=== PATIENT | male | born 1950 | race Caucasian/White ===

== ENCOUNTER 2018-07-05 18:30 | Inpatient (IN) ==
[2018-07-05] MEDS ORDERED: D5% in Water 1,000 ML IVC PRN (21:40)
[2018-07-05] MEDS ORDERED: Dextrose Gel 15 GM/37.5 ML TUBE PO PRN ×2 (21:40)
[2018-07-05] MEDS ORDERED: *HR* Dextrose 50 % in Water (Syg) 50 ML SYRINGE IVP PRN (21:40)
[2018-07-05] MEDS ORDERED: Acetaminophen 325 MG TABLET PO PRN (21:40)
[2018-07-05] MEDS ORDERED: Naloxone 0.4 MG/ML INJ IVP PRN (21:40)
[2018-07-05] MEDS ORDERED: Albuterol 2.5 MG/3 ML NEBULIZER IH PRN (21:47)
[2018-07-05] MEDS ORDERED: *HR* Heparin 5,000 UNIT/ML VIAL SQ SCH (22:00)
[2018-07-05] MEDS ORDERED: Vancomycin (wt based) 1,000 MG VIAL IVPB SCH (22:00)
[2018-07-05] MEDS: Ipratropium/Albuterol Neb 3 ML IH SCH (22:18)
--- NOTE | 2018-07-05 22:31 | Internal Med History&Physical ---
Date of Encounter: 07/05/18 Time of Encounter: 21:05 Internal Medicine - H&P: HPI Chief complaint: SOB; fevers; chills Admitted From: Hospital to Hospital Transfer Plans for Post Hospital Care: Home History of present illness: Mr. Galaviz is a 68 year old male who presents in transfer from [facility] ER for concerns of sepsis, chronic CHF, and COPD. He presented there with complaints of shortness of breath, chills, fevers, and low blood pressure. He was fluid resuscitated gingerly. He was found to have evidence of lactic acidosis, which was felt to be either due to CHF, metformin, and/or respiratory distress. After hemodynamic stabilization, he wa transferred to [facility]. Upon arrival to our floor, I saw him immediately. Blood pressure is hovering around 90 systolic, and he is currently asymptomatic with that blood pressure. He does have a significant appearing cellulitis of his right leg which I suspect may be the infectious source for sepsis. He confirms having had chills and subjective fevers at home. He did develop shortness of breath but denies any chest pain. Upon further history, patient confirms a history of chronic CHF and he does have an AICD/defibrillator in his left chest. He does not know his ejection fraction. He follows primarily with the [facility] and [facility] in [place]. We have no old records in our system regarding his cardiac workup. He denies any recent weight gain, increased abdominal girth, or increasing edema of his legs. He does have chronic edema of lower extremities and of his abdomen. However, that has not changed in recent weeks. He denies any fluctuation in his weight either. Given his lactic acidosis, hypotension, and evidence of cellulitis of his right lower extremity, I am concerned about sepsis, and we will treat him as such. Lactic acidosis may be secondary to metformin use as well. Nonetheless, I will gingerly fluid resuscitate him and trend his lactate levels while treating presumed sepsis. I discussed CODE STATUS with patient, and he confirms DNR arrest CODE STATUS. Past Med Surg Social Fam HX - Past Medical History Attestation: Yes The following information was validated with the patient. Source: patient, other ([facility]) Medical history: CHF, diabetes, hyperlipidemia, hypertension, myocardial infarction Additional medical history: AICD Psychiatric history: no psych history - Past Surgical History Surgical History: pacemaker/AICD, other - Social History Smoking Status: Former smoker Smokeless Tobacco Status: No Alcohol use: none Drug use: none Current living situation: Home, With Family Activity Level: Independent ambulation, Mostly sedentary Recent Out of Country Travel Within the Last 8 Weeks: No - Family History Mother Living Status: Cause of : ovarian CA Father Living Status: Cause of : COPD Internal Medicine - H&P: Meds Aspirin [Lo-Dose Aspirin EC] 81 mg PO DAILY 07/05/18 [History] Atorvastatin Calcium [Lipitor] 80 mg PO HS 07/05/18 [History] Furosemide [Lasix] 80 mg PO BID 07/05/18 [History] Gabapentin [Neurontin] 600 mg PO TID 07/05/18 [History] Isosorbide DInitrate [Isosorbide Dinitrate] 30 mg PO DAILY 07/05/18 [History] Lisinopril [Zestril] 10 mg PO DAILY 07/05/18 [History] Metformin HCl [Fortamet] 1,000 mg PO BID 07/05/18 [History] Metoprolol [Lopressor] 25 mg PO BID 07/05/18 [History] Spironolactone [Aldactone] 25 mg PO DAILY 07/05/18 [History] 3 Allergy/AdvReac Type Severity Reaction Status Date / Time No Known Allergies Allergy Verified 07/05/18 13:53 - Constitutional Constitutional: chills, excessive sweating, fatigue, fever(s), no night sweats, no weight gain, no weight loss - EENT Eyes: no blurry vision, no change in vision Ears: no ear pain, no tinnitus Nose, mouth and throat: no nasal congestion, no sore throat - Cardiovascular Cardiovascular ROS IM: dyspnea, dyspnea on exertion, edema (chronic), no chest pain, no orthopnea, no syncope - Respiratory Respiratory: no cough, no hemoptysis, no chest congestion, no excessive phlegm production - Gastrointestinal Gastrointestinal: no abdominal pain, no diarrhea, no hematemesis, no hematochezia, no melena, no vomiting - Genitourinary Genitourinary ROS male: no dysuria, no flank pain, no hematuria - Musculoskeletal Musculoskeletal ROS IM: muscle cramps, no back pain - Integumentary Integumentary IM: erythema (RLE), no jaundice - Neurological Neurological ROS: no dizziness, no focal weakness, no frequent falls, no headache(s) - Psychiatric Psychiatric: no anxiety, no depression - Endocrine Endocrine IM: no polydipsia, no polyuria - Allergic/Immunologic Allergic/Immunologic: no GI upset with certain foods - Constitutional Vitals: Temp Pulse Resp BP Pulse Ox 97.8 F 88 20 93/57 94 07/05/18 20:54 07/05/18 20:54 07/05/18 20:54 07/05/18 20:54 07/05/18 20:54 General appearance: Present: cooperative, mild distress, A&O X 3, pleasant, answers questions appropriately Exam: see below - Head Head exam: Present: atraumatic, normal inspection - Eye Eye exam: Present: EOMI, PERRL. Absent: scleral icterus Pupils: Present: normal accommodation - ENT ENT exam: Present: mucous membranes dry, normal exam, normal oropharynx - Neck Neck exam general surgery: Present: full ROM, supple. Absent: tenderness, nuchal rigidity, thyromegaly - Respiratory Respiratory exam: Present: CTAB, prolonged expiratory phase. Absent: rales, rhonchi, wheezes Additional comments: distant breath sounds - Cardiovascular Cardiovascular exam: Present: distant heart sounds, RRR, +S1, +S2, tachycardia ( HR low 100s) - GI/Abdominal GI/Abdominal exam: Present: distended, hypoactive bowel sounds, soft. Absent: mass, tenderness Additional comments: obese; no appreciable edema/anasarca to abdomen - Extremities Exam Extremities exam: Present: full ROM, normal capillary refill, pedal edema (3-4+) , warm, radial pulses palpable and symmetrical. Absent: calf tenderness, joint swelling Additional comments: chronic venous stasis changes to both legs with warm, red, tender cellulitis of right pretibial area - Back Exam Back exam: Absent: CVA tenderness (L), CVA tenderness (R) - Neurological Exam Neurological exam: Present: alert, CN II-XII intact, oriented X3, no focal deficits - Psychiatric Psychiatric exam: Present: normal affect, normal mood - Skin Skin exam: Present: dry, erythema (RLE as above), warm Internal Med - H&P Results - Labs Labs: I reviewed the labs from [place] and include the following: WBC 10.4 Hemoglobin 13.3 Hematocrit 43.5 Platelets 199 PT 13.9 INR 1.2 D-dimer 3134 Sodium 135 Potassium 4.0 Chloride 94 Carbon dioxide 28 BUN 15 Creatinine 1.06 Lactate: 5.0 --> 4.2 CTA chest: Report reviewed -- no PE; mild COPD - Assessment and plan (1) Sepsis Current Visit: Yes Status: Acute Assessment and plan: 1. Will fluid resuscitate gingerly and trend lactate levels. 2. Will order blood cultures. 3. Will treat with IV Vancomycin and Zosyn for RLE cellulitis source of infection. 4. If necessary, will move to ICU for pressor support and further ICU care. Qualifiers: Sepsis type: sepsis due to unspecified organism Qualified Code(s): A41.9 - Sepsis, unspecified organism (2) Cellulitis Current Visit: Yes Status: Acute Assessment and plan: 1. As above. 2. IV antibiotics, blood cultures, clinical reassessment. Qualifiers: Site of cellulitis of extremity: lower extremity Laterality: right Qualified Code(s): L03.115 - Cellulitis of right lower limb (3) Chronic systolic (congestive) heart failure Current Visit: Yes Status: Suspected Assessment and plan: 1. Based upon history, I suspect he has chronic systolic CHF. 2. Will order ECHO and EKG. 3. No acute process at this time; however, with IVF resuscitation and hydration , he may need further treatment for acute CHF. 4. Monitor fluid balance closely. (4) Type 2 diabetes mellitus Current Visit: Yes Status: Chronic Assessment and plan: 1. Hold Metformin. 2. Will place on SSI. 3. Monitor glucose closely and adjust as necessary. Qualifiers: Diabetes mellitus assisted insulin use: without dump attendant use Diabetes mellitus complication status: without complication Qualified Code(s): E11.9 - Type 2 diabetes mellitus without complications (5) COPD (chronic obstructive pulmonary disease) Current Visit: Yes Status: Chronic Assessment and plan: 1. NO acute process. 2. Will place on DUONEB abd Albuterol aerosols PRN. Qualifiers: COPD type: emphysema Emphysema type: panlobular Qualified Code(s): J43.1 - Panlobular emphysema (6) DVT prophylaxis Current Visit: Yes Status: Acute Assessment and plan: 1. Given D-DImer > 3000, will place on heparin drip until BLE Dopplers can be performed. 2. D-Dimer elevation likely due to sepsis; however, there is suspicion for DVT.
[2018-07-05] MEDS: 0.9 % Sodium Chloride 1,000 ML IVC SCH (22:32)
[2018-07-05] MEDS ORDERED: *HR* Heparin 5,000 UNIT/ML VIAL IVP PRN ×2 (22:40)
[2018-07-05 23:22] LABS: Hematocrit 42.2 % (37.5-50.1); Hemoglobin 13.2 g/dL (12.9-16.9); Heparin anti-factor XA UFH 0.01 IU/mL (0.30-0.70); Mean Corpuscular HGB Conc 31.3 g/dL (31.6-35.5); Mean Corpuscular Hemoglobin 28.8 pg (28.0-33.3); Mean Corpuscular Volume 91.9 fL (83.0-100.0); Platelet Count 162 K/mcL (140-400); Red Blood Count 4.59 M/mcL (4.19-5.50); Red Cell Distribution Width 15.9 % (11.5-14.5)
[2018-07-05 23:23] LABS: INR 1.2; Prothrombin Time 13.9 Seconds (9.4-12.1)
[2018-07-05] MEDS: Piperacillin/Tazobactam 3.375 GM in 0.9 % Sodium Chloride Mini Bag 100 ML IVPB SCH (23:51)
[2018-07-05] MEDS: Heparin 25,000 UNIT/500 ML D5W 25,000 UNIT/500 ML BAG IVC SCH (23:52)
[2018-07-06 02:02] LABS: Basophils % 0.2 %; Hematocrit 38.8 % (37.5-50.1); Hemoglobin 12.1 g/dL (12.9-16.9); Immature Granulocytes % 3.4 % (0-4); Lymphocytes # 0.4 K/mcL (0.6-4.6); Lymphocytes % 1.8 %; Mean Corpuscular HGB Conc 31.2 g/dL (31.6-35.5); Mean Corpuscular Hemoglobin 28.4 pg (28.0-33.3); Mean Corpuscular Volume 91.1 fL (83.0-100.0); Mean Platelet Volume 10.9 fL (9.4-12.4); Monocytes # 0.9 K/mcL (0.0-1.3); Monocytes % 3.8 %; Platelet Count 152 K/mcL (140-400); Red Blood Count 4.26 M/mcL (4.19-5.50); Red Cell Distribution Width 16.2 % (11.5-14.5); Segmented Neutrophils % 90.8 %
[2018-07-06 02:05] LABS: Basophils # 0.1 K/mcL (0.0-0.2); Neutrophils # 20.4 K/mcL (1.6-8.9)
[2018-07-06 02:22] LABS: Albumin 3.6 g/dL (3.5-5.7); Albumin/Globulin Ratio 1.1 (1.1-2.2); Calcium 8.4 mg/dL (8.6-10.3); Globulin 3.3 g/dL (2.4-3.5); Magnesium 1.3 mg/dL (1.6-2.6); Potassium 3.9 mEq/L (3.5-5.1); Total Protein 6.9 g/dL (6.4-8.9)
[2018-07-06 02:32] LABS: Platelet Estimate Normal (Normal); Toxic Granulation Present (Not Present)
[2018-07-06] MEDS: Ipratropium/Albuterol Neb 3 ML IH SCH ×4 (04:08→22:27)
[2018-07-06] MEDS: Piperacillin/Tazobactam 3.375 GM in 0.9 % Sodium Chloride Mini Bag 100 ML IVPB SCH ×3 (07:22→23:11)
[2018-07-06] MEDS: Aspirin Enteric Coated 81 MG Tablet PO SCH (07:23)
[2018-07-06] MEDS: Gabapentin 300 MG CAPSULE PO SCH ×3 (07:23→20:14)
[2018-07-06] MEDS: Insulin LISPRO 300 UNITS/3 ML VIAL SQ SCH ×3 (07:46→17:14)
[2018-07-06] MEDS: 0.9 % Sodium Chloride 1,000 ML IVC SCH ×2 (09:28→19:54)
[2018-07-06] MEDS ORDERED: Perflutren Lipid Microsphere 1.3 ML in 0.9 % Sodium Chloride 8.7 ML IVP ONE (10:34)
[2018-07-06] MEDS: Heparin 25,000 UNIT/500 ML D5W 25,000 UNIT/500 ML BAG IVC SCH (11:37)
--- NOTE | 2018-07-06 12:09 | Internal Med Progress Note ---
Hospitalist Progress Note - Encounter Date of Encounter: 07/06/18 Time of Encounter: 10:40 - Subjective Interval History: H&P reviewed. 68-year-old male with history of COPD, diabetes, presumably HFrEF with ICD insertion, was admitted from the outside hospital due to chills and hypotension. He was found to be septic, source determined to be the right lower leg cellulitis. Had leukocytosis of 22.5 and lactic acid of 5. BP and lactic acidosis improved with IV antibiotics and IVF overnight. Blood culture is growing gram-positive cocci that appears to be streptococcus - Exam Vitals: Temp Pulse Resp BP Pulse Ox 98.1 F 115 20 103/71 93 07/06/18 07:16 07/06/18 09:43 07/06/18 10:02 07/06/18 07:16 07/06/18 10:02 Exam: General: Alert and oriented, not in acute distress. Cardiovascular:Normal S1 & S2, No JVD. Pulse regular. Lungs: clear to auscultation, no wheezes/rales Abdomen:Soft, non-tender, no rigidity. Extremities: both legs with changes consistent with chronic venous stasis but R LE is warm to touch, tender on palpation around pre-tibial region Neurological:Normal cognition and motor skills. Non-focal - Assessment and Plan (1) Severe sepsis Current Visit: Yes Status: Acute Assessment and Plan: presented with chills, hypotension, tachycardia, and leukocytosis > 20 lactic acid 5, blood culture growing streptococcus BP and lactic acid improved with IVF but now appears to have KARISHMA with Cr at 1.68 , likely ATN from sepsis continue IV vanc/zosyn IVF for KARISHMA monitor BP closely (2) Cellulitis Current Visit: Yes Status: Acute Assessment and Plan: Abx as above. (3) Chronic systolic (congestive) heart failure Current Visit: Yes Status: Suspected Assessment and Plan: Based upon history, he presumably has chronic systolic CHF with ICD follow up on Echo since his BP and lactic acid normalized, will decrease the rate of IVF for KARISHMA (4) Type 2 diabetes mellitus Current Visit: Yes Status: Chronic Assessment and Plan: Hold Metformin, low dose SSI. Depending on the requirement, will switch to basal+bolus regime (5) COPD (chronic obstructive pulmonary disease) Current Visit: Yes Status: Chronic Assessment and Plan: not in exacerbation, on DUONEB abd Albuterol aerosols PRN. (6) Hypomagnesemia Current Visit: Yes Status: Acute Assessment and Plan: replete (7) DVT prophylaxis Current Visit: Yes Status: Acute Assessment and Plan: Given D-DImer > 3000 and swelling + tenderness more significant on RLE>LLE, will place on heparin drip until BLE Dopplers can be performed D-Dimer elevation likely due to sepsis; however, there is suspicion for DVT. - Time Spent with Patient Total time spent is greater than 50% in coordination of care (as documented) at patient's floor/unit and/or counseling patient: Plan of Care Discussed with: nurse Internal Medicine: Result - Labs CBC & Chem 7: 07/06/18 01:42 07/06/18 01:42 Labs: Short CBC 07/05/18 07/06/18 Range/Units 22:40 01:42 WBC 20.1 H D 22.5 H (4.3-11.1) K/mcL Hgb 13.2 12.1 L (12.9-16.9) g/dL Hct 42.2 38.8 (37.5-50.1) % Plt Count 162 152 (140-400) K/mcL Neutrophils # 20.4 H (1.6-8.9) K/mcL BMP 07/06/18 01:42 Sodium 134 L Potassium 3.9 Chloride 100 Carbon Dioxide 24 BUN 27 H Creatinine 1.68 H Glucose 200 H Calcium 8.4 L Liver Function 07/06/18 Range/Units 01:42 Total Bilirubin 1.0 (0.3-1.0) mg/dL AST 32 (13-39) Units/L ALT 17 (7-52) Units/L Alkaline Phosphatase 41 (34-104) Units/L Albumin 3.6 (3.5-5.7) g/dL - ABG Interpretation ABG results: PT/INR, D-dimer PT 13.9 Seconds (9.4-12.1) H 07/05/18 22:40 Consult Discharge Plan - Plan [facility]errals: [facility] Care Provider[facility] - Kendal Mckenna MD [Family Provider] - (2) Cellulitis Qualifiers: Site of cellulitis of extremity: lower extremity Laterality: right Qualified Code(s): L03.115 - Cellulitis of right lower limb (4) Type 2 diabetes mellitus Qualifiers: Diabetes mellitus half-way insulin use: without watermelon inspector use Diabetes mellitus complication status: without complication Qualified Code(s): E11.9 - Type 2 diabetes mellitus without complications (5) COPD (chronic obstructive pulmonary disease) Qualifiers: COPD type: emphysema Emphysema type: panlobular Qualified Code(s): J43.1 - Panlobular emphysema
[2018-07-06] MEDS: *HR* Heparin 5,000 UNIT/ML VIAL SQ SCH ×2 (14:36→20:15)
[2018-07-07] MEDS: 0.9 % Sodium Chloride 1,000 ML IVC SCH (03:06)
[2018-07-07] MEDS: Ipratropium/Albuterol Neb 3 ML IH SCH ×4 (04:24→21:58)
[2018-07-07] MEDS: *HR* Heparin 5,000 UNIT/ML VIAL SQ SCH ×2 (05:12→14:30)
[2018-07-07 07:11] LABS: Hematocrit 38.6 % (37.5-50.1); Hemoglobin 11.6 g/dL (12.9-16.9); Mean Corpuscular HGB Conc 30.1 g/dL (31.6-35.5); Mean Corpuscular Hemoglobin 28.5 pg (28.0-33.3); Mean Corpuscular Volume 94.8 fL (83.0-100.0); Mean Platelet Volume 11.4 fL (9.4-12.4); Platelet Count 115 K/mcL (140-400); Red Blood Count 4.07 M/mcL (4.19-5.50); Red Cell Distribution Width 15.9 % (11.5-14.5)
[2018-07-07 07:41] LABS: BUN/Creatinine Ratio 29 (6-26); Blood Urea Nitrogen 38 mg/dL (8-23); Carbon Dioxide 27 mEq/L (23-29); Chloride 99 mEq/L (98-107); Glucose 141 mg/dL (70-105); Osmolality,Calculated 289 (280-300); Potassium 3.9 mEq/L (3.5-5.1); Sodium 134 mEq/L (136-145); eGFR For Non-African Americans 56 (> 60)
[2018-07-07] MEDS: Insulin LISPRO 300 UNITS/3 ML VIAL SQ SCH ×3 (07:41→17:08)
[2018-07-07 08:36] LABS: Lymphocytes # 0.3 K/mcL (0.6-4.6); Monocytes # 0.3 K/mcL (0.0-1.3); Neutrophils # 15.9 K/mcL (1.6-8.9)
[2018-07-07 08:37] LABS: Anisocytosis 1+ (Not Present); Platelet Estimate Slight Decrease (Normal)
[2018-07-07] MEDS: Gabapentin 300 MG CAPSULE PO SCH ×3 (08:39→20:34)
[2018-07-07] MEDS: Aspirin Enteric Coated 81 MG Tablet PO SCH (08:39)
[2018-07-07] MEDS: Metoprolol XL (24 HR) Succ 25 MG TAB.ER.24H PO SCH (08:39)
[2018-07-07] MEDS: Piperacillin/Tazobactam 3.375 GM in 0.9 % Sodium Chloride Mini Bag 100 ML IVPB SCH ×3 (08:39→23:12)
[2018-07-07 08:41] LABS: Toxic Granulation Present (Not Present)
--- NOTE | 2018-07-07 10:57 | Internal Med Progress Note ---
Hospitalist Progress Note - Encounter Date of Encounter: 07/07/18 Time of Encounter: 09:15 - Subjective Interval History: States that his RLE feels better, less tender and swollen. No fever overnight. Doppler -ve for DVT. Denies SOB, orthopnea. - Exam Vitals: Temp Pulse Resp BP Pulse Ox 98.2 F 124 18 104/74 91 07/07/18 07:15 07/07/18 07:15 07/07/18 09:30 07/07/18 07:15 07/07/18 09:30 Exam: General: Alert and oriented, not in acute distress. Cardiovascular:Normal S1 & S2, No JVD. Pulse regular. Lungs: clear to auscultation, no wheezes/rales Abdomen:Soft, non-tender, no rigidity. Extremities: both legs with changes consistent with chronic venous stasis, decreasing erythema and swelling over R LE Neurological:Normal cognition and motor skills. Non-focal - Assessment and Plan (1) Severe sepsis Current Visit: Yes Status: Acute Assessment and Plan: presented with chills, hypotension, tachycardia, and leukocytosis > 20 lactic acid 5, blood culture growing streptococcus species BP and lactic acid improved with IVF but now appears to have KARISHMA with Cr at 1.68 -> likely ATN from sepsis, improved with IVF yesterday WBC improving but now with bands of 30%, continue IV vanc/zosyn D2 will d/c IVF in view of his HFrEF, encourage oral intake monitor BP closely (2) Cellulitis Current Visit: Yes Status: Acute Assessment and Plan: Abx as above. (3) KARISHMA (acute kidney injury) Current Visit: Yes Status: Acute Assessment and Plan: ?ATN from sepsis vs. ADRIEL, improved after low rate of IVF overnight will monitor off IVF today given his history of HFrEF (4) Heart failure Current Visit: Yes Status: Chronic Assessment and Plan: Based upon history, he presumably has chronic systolic CHF with ICD Echo done last night verified that he has EF of 30%, globally reduced LV function with mild dilatation, and diastolic dysfunction with possibly elevated filling pressures IVF d/alfredito (5) Type 2 diabetes mellitus Current Visit: Yes Status: Chronic Assessment and Plan: Hold Metformin, low dose SSI. Depending on the requirement, will switch to basal+bolus regime (6) COPD (chronic obstructive pulmonary disease) Current Visit: Yes Status: Chronic Assessment and Plan: not in exacerbation, on DUONEB abd Albuterol aerosols PRN. (7) Hypomagnesemia Current Visit: Yes Status: Acute Assessment and Plan: repleted, normal today (8) DVT prophylaxis Current Visit: Yes Status: Acute Assessment and Plan: LE DVT -ve, heparin SQ now - Time Spent with Patient Total time spent is greater than 50% in coordination of care (as documented) at patient's floor/unit and/or counseling patient: Greater than 35 minutes Plan of Care Discussed with: nurse Internal Medicine: Result - Labs CBC & Chem 7: 07/07/18 06:17 07/07/18 06:17 Labs: Short CBC 07/07/18 Range/Units 06:17 WBC 16.6 H (4.3-11.1) K/mcL Hgb 11.6 L (12.9-16.9) g/dL Hct 38.6 (37.5-50.1) % Plt Count 115 L (140-400) K/mcL Neutrophils # 15.9 H (1.6-8.9) K/mcL BMP 07/07/18 06:17 Sodium 134 L Potassium 3.9 Chloride 99 Carbon Dioxide 27 BUN 38 H Creatinine 1.29 Glucose 141 H Calcium 8.0 L - ABG Interpretation ABG results: PT/INR, D-dimer PT 13.9 Seconds (9.4-12.1) H 07/05/18 22:40 - Impressions Impressions Echocardiogram 07/06/18 21:40 Impressions: Technically challenging due to body habitus. LVEF 30%. LV systolic function appears globally reduced but LV endocardial border not well visualized in all views. Definity echo contrast was used. There is no LV thrombus. Moderately dilated left ventricle. Diastolic dysfunction, possibly elevated filling pressures. RV is dilated. Function grossly appears reduced but is normal by tissue doppler. No significant valvular dysfunction by Doppler. Valves were not well visualized. Unable to estimate RVSP due to suboptimal TR signal. Increased RA pressures. Left Ventricular Wall Motion: Rest Echo Findings The apex, apical inferior, mid inferior, basal inferior, apical anterior, mid anterior, basal anterior, apical septal, mid inferior septal, basal inferior septal, apical lateral, mid anterior lateral, basal anterior lateral, mid anterior septal, mid inferior lateral, basal anterior septal and basal inferior lateral james were hypokinetic. Findings: Study Quality * Technically challenging due to body habitus. ECG Findings * Normal sinus rhythm. Left Ventricle * Definity echo contrast was used. * Moderately dilated left ventricle. * Diastolic dysfunction, possibly elevated filling pressures. * There is no LV thrombus. * LVEF 30%. Right Ventricle * RV is dilated. Function grossly appears reduced but is normal by tissue doppler. Left Atrium * Moderately dilated left atrium. Right Atrium * Mildly dilated right atrium. Aortic Valve * No aortic regurgitation. * Aortic valve not well visualized. * No aortic stenosis. Mitral Valve * Mitral valve not well visualized. * No mitral stenosis. * Trace mitral regurgitation. Tricuspid Valve * Trace tricuspid regurgitation, suboptimal Doppler. * Trace tricuspid regurgitation. * Estimated RA pressure is 20 mmHg. Pulmonic Valve * Pulmonic valve is not well visualized. * No pulmonic stenosis. * No pulmonic regurgitation. Pulmonary Artery * Pulmonary artery not well visualized. Aorta * Normally sized aortic root. * The proximal ascending thoracic aorta is not well visualized. Pericardium * There is no pericardial effusion present. Interatrial Septum * No evidence of PFO by color Doppler. IVC * < 50% respiratory change. * The IVC is dilated. Consult Discharge Plan - Plan Referrals: Kendal Mckenna MD [Family Provider] - (Patient is from [facility] no pcp appointment needed) [facility] [Primary Care Provider[facility] - (2) Cellulitis Qualifiers: Site of cellulitis of extremity: lower extremity Laterality: right (4) Heart failure Qualifiers: Heart failure type: combined systolic and diastolic Heart failure chronicity : chronic Qualified Code(s): I50.42 - Chronic combined systolic (congestive) and diastolic (congestive) heart failure (5) Type 2 diabetes mellitus Qualifiers: Diabetes mellitus regional intermodal truck driver insulin use: without regional intermodal truck driver use Diabetes mellitus complication status: without complication Qualified Code(s): E11.9 - Type 2 diabetes mellitus without complications (6) COPD (chronic obstructive pulmonary disease) Qualifiers: COPD type: emphysema Emphysema type: panlobular Qualified Code(s): J43.1 - Panlobular emphysema
[2018-07-07] MEDS ORDERED: *HR* Metoprolol 5 MG/5 ML VIAL IVP PRN (13:51)
[2018-07-07] MEDS ORDERED: Amiodarone Premix 360 MG/200 ML BAG IVC ONE ×2 (17:55→18:01)
[2018-07-07] MEDS ORDERED: Amiodarone Premix 150 MG/100 ML BAG IVPB ONE ×2 (17:55→18:03)
[2018-07-07] MEDS ORDERED: *HR* Heparin 5,000 UNIT/ML VIAL IVP PRN (18:00)
[2018-07-07] MEDS ORDERED: *HR* Heparin 5,000 UNIT/ML VIAL IVP ONE (18:00)
[2018-07-07] MEDS ORDERED: *HR* Amiodarone 150 MG/3 ML VIAL IVPB ONE (18:00)
[2018-07-07] MEDS ORDERED: Amiodarone Premix 360 MG/200 ML BAG IVC SCH (18:00)
--- NOTE | 2018-07-07 18:19 | Electrocardiograph Report ---
[place] [id number] Test Date: 2018-07-05 Pat Name: Jose Galaviz Department: 110 Room: 2N06 Gender: Collection Team Lead: : 1950 Requested By: Dewey Canas Order Number: [id number] Reading MD: Tayo Rausch Measurements Intervals [place] Rate: 85 P: 5 NC: 191 QRS: 56 QRSD: 106 T: 116 QT: 370 QTc: 412 Interpretive Statements SINUS RHYTHM LOW QRS VOLTAGE IN EXTREMITY LEADS POSSIBLE ANTERIOR MYOCARDIAL INFARCTION, OF INDETERMINATE AGE Electronically Signed On 07-07-2018 18:18:16 EDT by Tayo Rausch
[2018-07-07 18:24] LABS: Hematocrit 37.4 % (37.5-50.1); Hemoglobin 11.3 g/dL (12.9-16.9); Mean Corpuscular HGB Conc 30.2 g/dL (31.6-35.5); Mean Corpuscular Volume 95.9 fL (83.0-100.0); Mean Platelet Volume 11.4 fL (9.4-12.4); Platelet Count 107 K/mcL (140-400)
[2018-07-07] MEDS ORDERED: 0.9 % Sodium Chloride 500 ML IVC ONE (18:27)
[2018-07-07 18:30] LABS: INR 1.3; Prothrombin Time 14.4 Seconds (9.4-12.1)
[2018-07-07] MEDS: traMADol 50 MG TABLET PO PRN (18:36)
[2018-07-07] MEDS: Heparin 25,000 UNIT/500 ML D5W 25,000 UNIT/500 ML BAG IVC SCH (19:46)
[2018-07-08] MEDS: *HR* Heparin 5,000 UNIT/ML VIAL IVP PRN ×2 (02:36→17:14)
[2018-07-08] MEDS: Levalbuterol Neb 1.25 MG/3 ML IH SCH ×4 (03:45→22:07)
[2018-07-08] MEDS ORDERED: Levalbuterol Neb 1.25 MG/3 ML IH SCH (04:00)
[2018-07-08] MEDS: Heparin 25,000 UNIT/500 ML D5W 25,000 UNIT/500 ML BAG IVC SCH ×3 (05:52→23:35)
[2018-07-08 07:17] LABS: Basophils % 0.2 %; Eosinophils % 0.2 %; Hematocrit 36.7 % (37.5-50.1); Immature Granulocytes % 0.7 % (0-4); Lymphocytes # 0.6 K/mcL (0.6-4.6); Lymphocytes % 5.3 %; Mean Corpuscular Hemoglobin 28.1 pg (28.0-33.3); Mean Corpuscular Volume 93.6 fL (83.0-100.0); Mean Platelet Volume 12.1 fL (9.4-12.4); Monocytes # 0.6 K/mcL (0.0-1.3); Monocytes % 5.3 %; Neutrophils # 10.5 K/mcL (1.6-8.9); Platelet Count 124 K/mcL (140-400); Red Blood Count 3.92 M/mcL (4.19-5.50); Red Cell Distribution Width 16.4 % (11.5-14.5); Segmented Neutrophils % 88.3 %
[2018-07-08 07:35] LABS: Alanine Aminotransferase 346 Units/L (7-52); Albumin 3.4 g/dL (3.5-5.7); Albumin/Globulin Ratio 0.9 (1.1-2.2); Alkaline Phosphatase 69 Units/L (34-104); Aspartate Amino Transferase 548 Units/L (13-39); BUN/Creatinine Ratio 32 (6-26); Bilirubin,Total 0.7 mg/dL (0.3-1.0); Blood Urea Nitrogen 43 mg/dL (8-23); Calcium 8.4 mg/dL (8.6-10.3); Carbon Dioxide 26 mEq/L (23-29); Chloride 100 mEq/L (98-107); Globulin 3.8 g/dL (2.4-3.5); Glucose 153 mg/dL (70-105); Osmolality,Calculated 288 (280-300); Potassium 4.8 mEq/L (3.5-5.1); Sodium 132 mEq/L (136-145); Total Protein 7.2 g/dL (6.4-8.9); eGFR For Non-African Americans 54 (> 60)
[2018-07-08] MEDS: Insulin LISPRO 300 UNITS/3 ML VIAL SQ SCH ×3 (08:33→16:31)
[2018-07-08] MEDS: Metoprolol XL (24 HR) Succ 25 MG TAB.ER.24H PO SCH (09:31)
[2018-07-08] MEDS: Aspirin Enteric Coated 81 MG Tablet PO SCH (09:31)
[2018-07-08] MEDS: Gabapentin 300 MG CAPSULE PO SCH ×3 (09:31→20:57)
[2018-07-08] MEDS: Piperacillin/Tazobactam 3.375 GM in 0.9 % Sodium Chloride Mini Bag 100 ML IVPB SCH ×2 (09:31→17:11)
[2018-07-08] MEDS ORDERED: Metoprolol XL (24 HR) Succ 25 MG TAB.ER.24H PO ONE (10:30)
--- NOTE | 2018-07-08 10:40 | Internal Med Progress Note ---
Hospitalist Progress Note - Encounter Date of Encounter: 07/08/18 Time of Encounter: 10:36 - Subjective Interval History: Patient seen and examined at bedside. Yesterday the patient had new onset atrial fibrillation with rapid ventricular response. This been somewhat controlled with IV Cardizem, Lopressor and, amiodarone load. Patient was started on IV heparin yesterday. Patient states that he feels just fine however RN reports that the patient seems slightly more lethargic than yesterday. Pain, shortness of breath, nausea, vomiting, diarrhea or abd pain. Patient is lying almost flat and states that he is not short of breath. Patient denies any palpitations and states that he had no symptoms when the atrial fibrillation started yesterday. - Exam Vitals: Temp Pulse Resp BP Pulse Ox 98.6 F 103 22 130/97 92 07/08/18 07:19 07/08/18 07:19 07/08/18 07:19 07/08/18 07:19 07/08/18 07:19 Exam: Constitutional: No acute distress, Alert Psych: AAO x 3, appropirate on exam HEENT: NCAT, EOMI Neck: supple Cardio: Irregularly irregular and tachycardic however rate is controlled better than yesterday, <110, +s1s2, no murmurs/rubs/gallops, no obvious JVD Resp: Good air movement, decreased breath sounds at bases secondary to habitus, no obvious wheeze, rales, rhonchi Abd: soft, non tender/non distended, positive bowel sounds, no gaurding/reboud/ ridgitity Extremities: 3+ pitting edema with statis dermatitis of bilateral lower extremities; anasarca present Neuro: no focal deficits appreciated - Assessment and Plan (1) Severe sepsis Current Visit: Yes Status: Acute Assessment and Plan: presented with chills, hypotension, tachycardia, and leukocytosis > 20 lactic acid 5 on admission, blood culture growing group b strep BP and lactic acid improved with IVF but developed BYRON with Cr at 1.68 -> likely ATN from sepsis, improved and now 1.33 WBC improving but significant bandemia yesterday, continue IV vanc/zosyn D3; likely transition to orals tomorrow ivf dced yesterday 2/2 chf with icm monitor BP closely (2) BYRON (acute kidney injury) Current Visit: Yes Status: Acute Assessment and Plan: -suspect ATN from sepsis vs. ADRIEL vs. ATN from hemodynamics -Scr stable at 1.33 today -hold off on ivf for now -am bmp (3) Atrial fibrillation with RVR Current Visit: Yes Status: Acute Assessment and Plan: -Patient developed new onset atrial fibrillation with rapid ventricular response with CHADSVASC of yesterday. -Patient was started on IV heparin as well as IV Cardizem and given IV Lopressor pushes -Appears to be atrial flutter on telemetry; will order EKG -Patient received IV amiodarone load yesterday -Patient remains on Cardizem drip at 12.5 mL per hour; due to the patient's reduced ejection fraction would like to transition to beta katy -Lopressor dose however the patient is hypotensive and may not tolerate -May have to transfer to ICU for IV esmolol drip -Check pricing for Xarelto; discussed with pt and he is aggreeable if approved -We will await cardiology recommendations (4) Cellulitis Current Visit: Yes Status: Acute Assessment and Plan: -improved -likely transition to orals tomorrow (5) Type 2 diabetes mellitus Current Visit: Yes Status: Chronic Assessment and Plan: -Hold Metformin, low dose SSI. -Depending on the requirement, will switch to basal+bolus regime -will monitor (6) COPD (chronic obstructive pulmonary disease) Current Visit: Yes Status: Chronic Assessment and Plan: not in exacerbation, on DUONEB abd Albuterol aerosols PRN. (7) DVT prophylaxis Current Visit: Yes Status: Acute Assessment and Plan: IV heparin (8) Hypomagnesemia Current Visit: Yes Status: Acute Assessment and Plan: replaced (9) Transaminitis Current Visit: Yes Status: Acute Assessment and Plan: Patient developed transaminitis AST is 548 AST is 346; these were within normal limits previously -Unclear etiology, could be related to portal congestion secondary to heart failure however the patient does not appear to be decompensated, could be related to amiodarone load yesterday or secondary to hypotension -No abdominal pain -We will recheck in a.m. -If remains elevated or worsens we will obtain imaging tomorrow (10) Heart failure Current Visit: Yes Status: Chronic Assessment and Plan: Based upon history, he presumably has chronic systolic CHF with ICD -Echo verified that he has EF of 30%, globally reduced LV function with mild dilatation, and diastolic dysfunction with possibly elevated filling pressures -IVF d/alfredito -cardio eval pending -does not appear to be decompensated currently -on asa, bb -flor inhibitor and aldactone held 2/2 byron -lasix held, resume soon -Patient with good balance since admission and 12 kg weight gain DVT Prophylaxis: IV heparin - Time Spent with Patient Total time spent is greater than 50% in coordination of care (as documented) at patient's floor/unit and/or counseling patient: 25 - 35 minutes Plan of Care Discussed with: patient Internal Medicine: Result - Labs CBC & Chem 7: 07/08/18 06:36 07/08/18 06:36 Labs: Short CBC 07/07/18 07/08/18 Range/Units 18:00 06:36 WBC 12.7 H 11.9 H (4.3-11.1) K/mcL Hgb 11.3 L 11.0 L (12.9-16.9) g/dL Hct 37.4 L 36.7 L (37.5-50.1) % Plt Count 107 L 124 L (140-400) K/mcL Neutrophils # 10.5 H (1.6-8.9) K/mcL BMP 07/08/18 06:36 Sodium 132 L Potassium 4.8 Chloride 100 Carbon Dioxide 26 BUN 43 H Creatinine 1.33 H Glucose 153 H Calcium 8.4 L Liver Function 07/08/18 Range/Units 06:36 Total Bilirubin 0.7 (0.3-1.0) mg/dL AST 548 H (13-39) Units/L ALT 346 H (7-52) Units/L Alkaline Phosphatase 69 (34-104) Units/L Albumin 3.4 L (3.5-5.7) g/dL - ABG Interpretation ABG results: PT/INR, D-dimer PT 14.4 Seconds (9.4-12.1) H 07/07/18 18:00 Consult Discharge Plan - Plan Referrals: Kendal Mckenna MD [Family Provider] - (Patient is from [facility] no pcp appointment needed) [facility] [[facility] Care Provider[facility] - (4) Cellulitis Qualifiers: Site of cellulitis of extremity: lower extremity Laterality: right (5) Type 2 diabetes mellitus 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: 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
--- NOTE | 2018-07-08 13:42 | Cardiology Consult Note ---
Date of Encounter: 07/08/18 Time of Encounter: 12:40 Assessment and Plan (1) Atrial fibrillation with RVR Current Visit: Yes Status: Acute New-onset atrial fibrillation with RVR during stay. Presented in NSR. Likely exacerbated by sepsis and now with fluid overload. He is rate controlled on cardizem gtt. Ideally cardizem should be avoided with known CMP. EF 30%. Increase toprol as tolerated. D/c cardizem. CHADS VASc= 5 . AC with coumadin vs NOAC discussed. Currently on heparin gtt. Recommend starting eliquis this is [facility] by the [facility]. (2) Chronic systolic CHF (congestive heart failure) Current Visit: Yes Status: Acute H/o ICMP, CHFrEF. Follows with [facility]. TTE reviewed:LVEF 30%. LV systolic function appears globally reduced but LV endocardial border not well visualized in all views. Definity echo contrast was used. There is no LV thrombus. Moderately dilated left ventricle. Diastolic dysfunction, possibly elevated filling pressures. RV is dilated. Function grossly appears reduced but is normal by tissue doppler. No significant valvular dysfunction by Doppler. Valves were not well visualized. Unable to estimate RVSP due to suboptimal TR signal. Increased RA pressures. Noted to have increased BLE and weight gain per nursing staff. 12kg weight gain noted. Positive 4L. Lasix on hold, he was on 80 mg BID. Start IV lasix. Strict I&O and daily weights. Continue bb. Lisinopril held on admit due to KARISHMA/CKD. Consider restarting. Discussion w patient/family: The assessment and plan as outlined above was discussed with the patient and/or family members who expressed understanding and agreement. All questions were answered. Thank you for involving us in the care of your patient. Please call with any questions. History of Present Illness Consult date: 07/08/18 Requesting physician: Yanick Avila Consult reason: new atrial fibrillation with RVR Chief complaint: tremors History of present illness: Mr. Galaviz is a 68 year old male with past medical history of CAD s/p PCI, ICMP , ICD, CKD, DM, and COPD. He presents from home with the c/o "the [employer]". He is found to have severe sepsis with bacteremia. Cardiology consulted for atrial fibrillation with RVR that developed during the hospital stay. Initial EKG shows SR. Patient denies prior history of afib. 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 ICD was placed in November for cardiomyoapthy. Records ordered. He denies chest pain or SOB. Denies palpitations. He is currently rate controlled on cardizem gtt. Past Med Surg Social Fam HX - Past Medical History Medical history: cardiomyopathy, CHF, coronary artery disease, diabetes, hyperlipidemia, hypertension, myocardial infarction Additional medical history: AICD Psychiatric history: no psych history - Past Surgical History Surgical History: pacemaker/AICD, other - Social History Smoking Status: Former smoker Smokeless Tobacco Status: No Alcohol use: none Drug use: none - Family History Mother Living Status: Cause of : ovarian CA Father Living Status: Cause of : COPD Medications and Allergies Aspirin [Lo-Dose Aspirin EC] 81 mg PO DAILY 07/05/18 [History] Atorvastatin Calcium [Lipitor] 80 mg PO HS 07/05/18 [History] Furosemide [Lasix] 80 mg PO BID 07/05/18 [History] Gabapentin [Neurontin] 600 mg PO TID 07/05/18 [History] Lisinopril [Zestril] 10 mg PO DAILY 07/05/18 [History] Metformin HCl [Fortamet] 1,000 mg PO BID 07/05/18 [History] Spironolactone [Aldactone] 25 mg PO DAILY 07/05/18 [History] Isosorbide MONOnitrate (24 HR) [Imdur] 30 mg PO DAILY 07/06/18 [History] Metoprolol Succinate [Toprol Xl] 25 mg PO DAILY 07/06/18 [History] Rivaroxaban [Xarelto] 20 mg PO DAILY 30 Days #30 tablet 07/08/18 [Rx] 3 Allergy/AdvReac Type Severity Reaction Status Date / Time No Known Allergies Allergy Verified 07/05/18 13:53 All Systems Review: The remainder of the systems were reviewed and are negative Physical Examination Vital Signs, Last 4 Hours Temp Pulse Resp BP Pulse Ox 07/08/18 13:06 94 07/08/18 12:03 97.8 F 91 14 82/71 94 07/08/18 10:44 18 93 General: Conversant, No Apparent Distress, Other (obese male) HEENT: Atraumatic, Normocephaly, Mucus Membranes Moist Neck: No JVD, Normal carotid pulses Cardiac: Other (Irregularly irregular) Lungs: Normal Breath Sounds, No Wheeze, Rales, Rhonchi Neuro: Alert and responsive, No focal deficits noted Abdomen: Soft, Non-Tender Skin: No rashes noted on visualized skin Musculoskeletal: No Chest Wall Tenderness Extremities: No Clubbing, No Cyanosis, Normal Pulses, Other (1+ BLE edema, redness, and swelling. ) Results 07/08/18 06:36 07/08/18 06:36 Lab Results 07/07/18 07/07/18 07/08/18 18:00 18:00 06:36 WBC 12.7 H 11.9 H Hgb 11.3 L 11.0 L Hct 37.4 L 36.7 L Plt Count 107 L 124 L INR 1.3 Sodium Potassium Chloride Carbon Dioxide BUN Creatinine Glucose Calcium Total Bilirubin AST ALT Alkaline Phosphatase 07/08/18 06:36 WBC Hgb Hct Plt Count INR Sodium 132 L Potassium 4.8 Chloride 100 Carbon Dioxide 26 BUN 43 H Creatinine 1.33 H Glucose 153 H Calcium 8.4 L Total Bilirubin 0.7 AST 548 H ALT 346 H Alkaline Phosphatase 69 Echocardiogram 07/06/18 21:40 Impressions: Technically challenging due to body habitus. LVEF 30%. LV systolic function appears globally reduced but LV endocardial border not well visualized in all views. Definity echo contrast was used. There is no LV thrombus. Moderately dilated left ventricle. Diastolic dysfunction, possibly elevated filling pressures. RV is dilated. Function grossly appears reduced but is normal by tissue doppler. No significant valvular dysfunction by Doppler. Valves were not well visualized. Unable to estimate RVSP due to suboptimal TR signal. Increased RA pressures. Left Ventricular Wall Motion: Rest Echo Findings The apex, apical inferior, mid inferior, basal inferior, apical anterior, mid anterior, basal anterior, apical septal, mid inferior septal, basal inferior septal, apical lateral, mid anterior lateral, basal anterior lateral, mid anterior septal, mid inferior lateral, basal anterior septal and basal inferior lateral james were hypokinetic. - Imaging and Cardiology Echo: report reviewed Consult Discharge Plan - Plan Referrals: Kendal Mckenna MD [Family Provider] - (Patient is from [facility] no pcp appointment needed) [facility] [Primary Care Provider] - Prescriptions: Rivaroxaban [Xarelto] 20 mg PO DAILY 30 Days #30 tablet
[2018-07-08] MEDS: Furosemide 40 MG/4 ML VIAL IVP SCH ×2 (15:03→20:56)
[2018-07-09] MEDS: Piperacillin/Tazobactam 3.375 GM in 0.9 % Sodium Chloride Mini Bag 100 ML IVPB SCH ×2 (00:25→08:39)
[2018-07-09] MEDS: Levalbuterol Neb 1.25 MG/3 ML IH SCH ×4 (03:41→21:48)
[2018-07-09 05:51] LABS: Basophils % 0.4 %; Eosinophils # 0.1 K/mcL (0.0-0.6); Eosinophils % 1.3 %; Hematocrit 38.3 % (37.5-50.1); Hemoglobin 11.2 g/dL (12.9-16.9); Immature Granulocytes % 0.5 % (0-4); Lymphocytes # 0.8 K/mcL (0.6-4.6); Lymphocytes % 9.6 %; Mean Corpuscular HGB Conc 29.2 g/dL (31.6-35.5); Mean Corpuscular Hemoglobin 27.5 pg (28.0-33.3); Mean Corpuscular Volume 93.9 fL (83.0-100.0); Mean Platelet Volume 11.9 fL (9.4-12.4); Monocytes # 0.5 K/mcL (0.0-1.3); Monocytes % 6.4 %; Neutrophils # 6.4 K/mcL (1.6-8.9); Nucleated Red Blood Cells 0.3 /100 WBC (0); Platelet Count 116 K/mcL (140-400); Red Blood Count 4.08 M/mcL (4.19-5.50); Red Cell Distribution Width 16.5 % (11.5-14.5); Segmented Neutrophils % 81.8 %
[2018-07-09 06:07] LABS: BUN/Creatinine Ratio 37 (6-26); Blood Urea Nitrogen 52 mg/dL (8-23); Calcium 8.5 mg/dL (8.6-10.3); Carbon Dioxide 26 mEq/L (23-29); Chloride 100 mEq/L (98-107); Glucose 129 mg/dL (70-105); Magnesium 2.4 mg/dL (1.6-2.6); Osmolality,Calculated 290 (280-300); Phosphorous 4.5 mg/dL (2.7-4.5); Potassium 4.4 mEq/L (3.5-5.1); Sodium 132 mEq/L (136-145); eGFR For Non-African Americans 50 (> 60)
[2018-07-09 06:08] LABS: Albumin 3.4 g/dL (3.5-5.7); Albumin/Globulin Ratio 0.9 (1.1-2.2); Bilirubin,Direct 0.3 mg/dL (0.0-0.2); Bilirubin,Indirect 0.5 mg/dL (0.0-1.2); Bilirubin,Total 0.8 mg/dL (0.3-1.0); Total Protein 7.4 g/dL (6.4-8.9)
--- NOTE | 2018-07-09 07:56 | Electrocardiograph Report ---
[place] [id number] Test Date: 2018-07-08 Pat Name: Jose Galaviz Department: 110 Room: 2N06 Gender: M [employer] Winder: : 1950 Requested By: Clinton Avila Order Number: [id number] Reading MD: Tayo Rausch Measurements Intervals [place] Rate: 94 P: MD: 0 QRS: 101 QRSD: 116 T: -60 QT: 363 QTc: 415 Interpretive Statements ATRIAL FIBRILLATION LOW QRS VOLTAGE IN EXTREMITY LEADS POSSIBLE ANTERIOR MYOCARDIAL INFARCTION, PROBABLY OLD Electronically Signed On 07-09-2018 7:54:50 EDT by Tayo Rausch
[2018-07-09] MEDS: Insulin LISPRO 300 UNITS/3 ML VIAL SQ SCH ×3 (08:15→17:08)
[2018-07-09] MEDS ORDERED: Aminoglycoside Consult 1 EACH MC ONE (08:16)
[2018-07-09] MEDS: Aspirin Enteric Coated 81 MG Tablet PO SCH (08:39)
[2018-07-09] MEDS: Metoprolol XL (24 HR) Succ 50 MG TAB.ER.24H PO SCH (08:39)
[2018-07-09] MEDS: Furosemide 40 MG/4 ML VIAL IVP SCH ×2 (08:39→17:07)
[2018-07-09] MEDS: Gabapentin 300 MG CAPSULE PO SCH ×3 (08:39→19:57)
[2018-07-09] MEDS: Heparin 25,000 UNIT/500 ML D5W 25,000 UNIT/500 ML BAG IVC SCH (08:54)
--- NOTE | 2018-07-09 09:11 | Cardiology Progress Note ---
Date of Encounter: 07/09/18 Time of Encounter: 09:00 Assessment and Plan (1) Atrial fibrillation with RVR Current Visit: Yes Status: Acute New-onset atrial fibrillation with RVR during stay. Presented in NSR. Likely exacerbated by sepsis and now with fluid overload. Cardizem should be avoided with known CMP. EF 30%. Cardizem gtt discontinued yesterday. Increase toprol as tolerated. Avg HR 102 bpm overnight. Suspect HR to improve once infection and fluid overload improves. CHADS VASc= 5 . AC with coumadin vs NOAC discussed. Currently on heparin gtt. Recommend starting NOAC this is typically [facility] by the [facility]. Xarelto already sent by primary team. Start xarelto if covered. (2) Chronic systolic CHF (congestive heart failure) Current Visit: Yes Status: Acute H/o ICMP, CHFrEF. Follows with [facility]. Recent ICD placed for CMP. TTE reviewed:LVEF 30%. LV systolic function appears globally reduced but LV endocardial border not well visualized in all views. Definity echo contrast was used. There is no LV thrombus. Moderately dilated left ventricle. Diastolic dysfunction, possibly elevated filling pressures. RV is dilated. Function grossly appears reduced but is normal by tissue doppler. No significant valvular dysfunction by Doppler. Valves were not well visualized. Unable to estimate RVSP due to suboptimal TR signal. Increased RA pressures. Noted to have increased BLE and weight gain per nursing staff. 12kg weight gain noted yesterday. Positive 5L. IV lasix started yesterday. 1500 ml fluid restriction. Start IV lasix. Strict I&O and daily weights. Continue bb. Lisinopril held on admit due to KARISHMA/CKD. Consider restarting if b/p allows. Discussion w patient/family: The assessment and plan as outlined above was discussed with the patient and/or family members who expressed understanding and agreement. All questions were answered. Thank you for involving us in the care of your patient. Please call with any questions. Subjective Principal diagnosis: AFib with RVR, CHF Interval history: Mr. Galaviz denies new symptoms today. Objective Vital Signs, Last 4 Hours Temp Pulse Resp BP Pulse Ox 07/09/18 07:41 97.7 F 112 18 107/98 95 General: Conversant, No Apparent Distress HEENT: Atraumatic, Normocephaly, Mucus Membranes Moist Neck: No JVD, Normal carotid pulses Cardiac: Other Lungs: Normal Breath Sounds, No Wheeze, Rales, Rhonchi Neuro: Alert and responsive, No focal deficits noted Abdomen: Soft, Non-Tender Skin: No rashes noted on visualized skin Musculoskeletal: No Chest Wall Tenderness Extremities: No Clubbing, No Cyanosis, No Edema, Normal Pulses Results 07/09/18 04:00 07/09/18 04:00 Lab Results 07/09/18 07/09/18 07/09/18 04:00 04:00 04:00 WBC 7.8 Hgb 11.2 L Hct 38.3 Plt Count 116 L Sodium 132 L Potassium 4.4 Chloride 100 Carbon Dioxide 26 BUN 52 H Creatinine 1.42 H Glucose 129 H Calcium 8.5 L Magnesium 2.4 Total Bilirubin 0.8 AST 362 H ALT 486 H Alkaline Phosphatase 91 - Imaging and Cardiology Echo: report reviewed - EKG Interpretation EKG results cardiology: personally reviewed Consult Discharge Plan - Plan Referrals: Kendal Mckenna MD [Family Provider] - (Patient is from [facility] no pcp appointment needed) [facility] [Primary Care Provider] - Prescriptions: Rivaroxaban [Xarelto] 20 mg PO DAILY 30 Days #30 tablet
--- NOTE | 2018-07-09 10:15 | Internal Med Progress Note ---
Hospitalist Progress Note - Encounter Date of Encounter: 07/09/18 Time of Encounter: 10:07 - Subjective Interval History: Patient seen and examined at bedside. No acute overnight events. Cardizem gtt was discontinued and BB increase yesterday. HR better controlled; <110. Pt states he feels okay but feels tired. Patient denies any chest pain, worsening shortness of breath, nausea, vomiting, diarrhea. Patient very dyspneic with exertion. IV diuresis started yesterday by cardio; good urine output. foy placed for accurate I/Os. - Exam Vitals: Temp Pulse Resp BP Pulse Ox 97.7 F 112 18 107/98 95 07/09/18 07:41 07/09/18 07:41 07/09/18 07:41 07/09/18 07:41 07/09/18 07:41 Exam: Constitutional: No acute distress, Alert Psych: AAO x 3, appropirate but slow to answer questions HEENT: NCAT, EOMI Neck: supple Cardio: Irregularly irregular and tachycardic however rate remaines controlled < 110, +s1s2, no murmurs Resp: Good air movement, decreased breath sounds at bases secondary to habitus, slight bibasilar crackes Abd: soft, non tender/non distended, positive bowel sounds, no gaurding/reboud/ ridgitity Extremities: 3+ pitting edema with statis dermatitis of bilateral lower extremities; anasarca present; legs wrapped with flor bandage today Neuro: no focal deficits appreciated - Assessment and Plan (1) Severe sepsis Current Visit: Yes Status: Acute Assessment and Plan: presented with chills, hypotension, tachycardia, and leukocytosis > 20 lactic acid 5 on admission, blood culture growing group b strep; repeat cx negative to date BP and lactic acid improved with IVF but developed KARISHMA with Cr at 1.68 -> likely ATN from sepsis, improved but now slightly uptrending to 1.42; now suspect some component of decreased effective circulating volume continue diuresis transition to oral doxy today ivf dced 2/2 chf with icm monitor BP closely (2) KARISHMA (acute kidney injury) Current Visit: Yes Status: Acute Assessment and Plan: -suspect ATN from sepsis vs. ADRIEL vs. ATN from hemodynamics -Scr stable but slightly uptrending to 1.42; suspect component of decreased effective circulating volume now -continue diuresis -hold off on ivf for now -am bmp (3) Atrial fibrillation with RVR Current Visit: Yes Status: Acute Assessment and Plan: -Patient developed new onset atrial fibrillation with rapid ventricular response with CHADSVASC of yesterday. -Patient was started on IV heparin as well as IV Cardizem and given IV Lopressor pushes initially -Appears to be atrial flutter on telemetry; will order EKG -Patient received IV amiodarone load 07/07 -off cardizem -Check pricing for Xarelto today; discussed with pt and he is aggreeable if approved -continue toprolol xl 50 daily; uptitrate as bp allows -cardio following (4) Cellulitis Current Visit: Yes Status: Acute Assessment and Plan: -improved -tranisitoned to oral doxy based on sensitivites (5) Type 2 diabetes mellitus Current Visit: Yes Status: Chronic Assessment and Plan: -Hold Metformin, low dose SSI. -Depending on the requirement, will switch to basal+bolus regime -will monitor (6) COPD (chronic obstructive pulmonary disease) Current Visit: Yes Status: Chronic Assessment and Plan: not in exacerbation, on DUONEB abd Albuterol aerosols PRN. (7) DVT prophylaxis Current Visit: Yes Status: Acute Assessment and Plan: IV heparin (8) Hypomagnesemia Current Visit: Yes Status: Acute Assessment and Plan: stable (9) Transaminitis Current Visit: Yes Status: Acute Assessment and Plan: Patient developed transaminitis AST is 548 AST is 346; these were within normal limits previously -Unclear etiology, improving today; suspect 2/2 portal hypertension with heart failure vs amiodarone -No abdominal pain -will follow cmp in am (10) Heart failure Current Visit: Yes Status: Chronic Assessment and Plan: Acute on chronic decompensated heart failure with diastolic and systolic dysfunction -Echo verified that he has EF of 30%, globally reduced LV function with mild dilatation, and diastolic dysfunction with possibly elevated filling pressures -IVF d/alfredito -cardio following -on asa, bb -flor inhibitor and aldactone held 2/2 karishma -iv diuresis -Patient 12 kg weight gain this admision -strict I/Os DVT Prophylaxis: IV heparin - Summary of Assessment and Plan Summary of Assessment and Plan: Sepsis resovled. Now with decompensated heart failure. Continue IV diuresis. Patient remains at very high risk for decompensation. If patient develops respiratory distress will start noninvasive ventilation; currently no distress. - Time Spent with Patient Total time spent is greater than 50% in coordination of care (as documented) at patient's floor/unit and/or counseling patient: 25 - 35 minutes Plan of Care Discussed with: patient Internal Medicine: Result - Labs CBC & Chem 7: 07/09/18 04:00 07/09/18 04:00 Labs: Short CBC 07/09/18 Range/Units 04:00 WBC 7.8 (4.3-11.1) K/mcL Hgb 11.2 L (12.9-16.9) g/dL Hct 38.3 (37.5-50.1) % Plt Count 116 L (140-400) K/mcL Neutrophils # 6.4 (1.6-8.9) K/mcL BMP 07/09/18 04:00 Sodium 132 L Potassium 4.4 Chloride 100 Carbon Dioxide 26 BUN 52 H Creatinine 1.42 H Glucose 129 H Calcium 8.5 L Liver Function 07/09/18 Range/Units 04:00 Total Bilirubin 0.8 (0.3-1.0) mg/dL Direct Bilirubin 0.3 H (0.0-0.2) mg/dL AST 362 H (13-39) Units/L ALT 486 H (7-52) Units/L Alkaline Phosphatase 91 (34-104) Units/L Albumin 3.4 L (3.5-5.7) g/dL - ABG Interpretation ABG results: PT/INR, D-dimer PT 14.4 Seconds (9.4-12.1) H 07/07/18 18:00 Consult Discharge Plan - Plan Referrals: Kendal Mckenna MD [Family Provider] - (Patient is from [facility] no pcp appointment needed) [facility] [Primary Care Provider] - Prescriptions: Rivaroxaban [Xarelto] 20 mg PO DAILY 30 Days #30 tablet (4) Cellulitis Qualifiers: Site of cellulitis of extremity: lower extremity Laterality: right (5) Type 2 diabetes mellitus 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
[2018-07-09] MEDS: Doxycycline 100 MG CAPSULE PO SCH ×2 (12:04→19:57)
[2018-07-09] MEDS: *HR* Rivaroxaban 10 MG TABLET PO SCH (17:07)
[2018-07-10] MEDS: Levalbuterol Neb 1.25 MG/3 ML IH SCH ×4 (03:53→22:38)
[2018-07-10 05:06] LABS: Alanine Aminotransferase > 500 Units/L (7-52); Albumin 3.3 g/dL (3.5-5.7); Albumin/Globulin Ratio 0.9 (1.1-2.2); Alkaline Phosphatase 114 Units/L (34-104); Aspartate Amino Transferase 334 Units/L (13-39); BUN/Creatinine Ratio 48 (6-26); Blood Urea Nitrogen 43 mg/dL (8-23); Calcium 8.8 mg/dL (8.6-10.3); Carbon Dioxide 27 mEq/L (23-29); Chloride 102 mEq/L (98-107); Globulin 3.6 g/dL (2.4-3.5); Glucose 132 mg/dL (70-105); Magnesium 2.1 mg/dL (1.6-2.6); Osmolality,Calculated 293 (280-300); Potassium 4.9 mEq/L (3.5-5.1); Sodium 135 mEq/L (136-145); Total Protein 6.9 g/dL (6.4-8.9); eGFR For Non-African Americans > 60 (> 60)
[2018-07-10] MEDS: Insulin LISPRO 300 UNITS/3 ML VIAL SQ SCH ×3 (07:22→16:09)
[2018-07-10] MEDS: Furosemide 40 MG/4 ML VIAL IVP SCH ×2 (07:54→16:05)
[2018-07-10] MEDS: Aspirin Enteric Coated 81 MG Tablet PO SCH (07:54)
[2018-07-10] MEDS: Metoprolol XL (24 HR) Succ 50 MG TAB.ER.24H PO SCH (07:54)
[2018-07-10] MEDS: Doxycycline 100 MG CAPSULE PO SCH ×2 (07:54→20:52)
[2018-07-10] MEDS: Gabapentin 300 MG CAPSULE PO SCH ×3 (07:54→20:52)
--- NOTE | 2018-07-10 07:59 | Internal Med Progress Note ---
Hospitalist Progress Note - Encounter Date of Encounter: 07/10/18 Time of Encounter: 07:54 - Subjective Interval History: Patient seen and examined at bedside. Pt slightly tachycardic and hypotensive today. Pt had episodes of worsening tachypnea yesterday afternoon and this am. Diuressing well per RN. Pt states he feels "the same". She denies any chest pain, states h he is mildly short of breath however does not feel this is worsening, patient denies any abdominal pain, nausea, vomiting, diarrhea. Patient had bowel movement this morning. Patient denies any palpitations. Has been afebrile. Pt was in chair at bedside when I evaluated pt. HR 130 and SBP in 80s; put back in bed and BP increased. Will give AM lopressor now. Pt got more dsypnic when laid flat while transitioning to bed. - Exam Vitals: Temp Pulse Resp BP Pulse Ox 97.6 F 120 18 111/94 99 07/10/18 06:48 07/10/18 07:50 07/10/18 07:50 07/10/18 07:50 07/10/18 07:50 Exam: Constitutional: No acute distress, Alert, conversaitionally dyspnic but no repriatory distress Psych: AAO x 3, appropirate, answers questions quicker than yesterday HEENT: NCAT, EOMI Neck: supple Cardio: Irregularly irregular and tachycardic HR 130 now, +s1s2, no murmurs Resp: Good air movement, decreased breath sounds at bases secondary to habitus, continued slight bibasilar crackes Abd: soft, non tender/non distended, positive bowel sounds, no gaurding/reboud/ ridgitity, protuberant Extremities: 3+ pitting edema with statis dermatitis of bilateral lower extremities; anasarca present; legs wrapped with flor bandage Neuro: no focal deficits appreciated - Assessment and Plan (1) Acute respiratory failure with hypoxia Current Visit: Yes Status: Acute Assessment and Plan: Pt requiring 2-5L NC to maintain adequate oxygenation -pulse ox 82 percent in room on room air; improves to 92 with supplemental oxygen -likely 2/2 decompensated systolic HF -continue diuresis -chest xray today -may require bipap if decompensates (2) Atrial fibrillation with RVR Current Visit: Yes Status: Acute Assessment and Plan: -Patient developed new onset atrial fibrillation with rapid ventricular response with CHADSVASC of 5 -Continues to have intermitent RVR -Patient received IV amiodarone load 07/07 -off cardizem -on xarelto for ac -continue toprolol xl 50 daily; uptitrate as bp allows -d/w cardio reguarding benefit of digoxin in light of low bp and systolic HF -cardio following (3) Heart failure Current Visit: Yes Status: Chronic Assessment and Plan: Acute on chronic decompensated heart failure with diastolic and systolic dysfunction -Echo verified that he has EF of 30%, globally reduced LV function with mild dilatation, and diastolic dysfunction with possibly elevated filling pressures -still volume overloaded -cardio following -on asa, bb -flor inhibitor and aldactone held 2/2 karishma -iv diuresis will continue; KARISHMA improving with diuresis -Patient 12 kg weight gain this admision; obtain wt today -strict I/Os, daily weights -obtain CXR today (4) Severe sepsis Current Visit: Yes Status: Acute Assessment and Plan: presented with chills, hypotension, tachycardia, and leukocytosis > 20 lactic acid 5 on admission, blood culture growing group b strep; repeat cx negative to date BP and lactic acid improved with IVF but developed KARISHMA with Cr at 1.68 -> initialy suspected ATN from sepsis now strongly suspect renal insufficency is secondary to decreased effective circulating volume especially in light of improving Cr with diuresis continue diuresis continue oral doxy Sepsis resolved monitor BP closely (5) KARISHMA (acute kidney injury) Current Visit: Yes Status: Acute Assessment and Plan: -suspect initial KARISHMA from ATN from sepsis vs. ADRIEL vs. ATN from hemodynamics -supsequent worsenig of KARISHMA after initial improvment likely 2/2 decreased effective circulating volume -Scr imrpoving with diuresis to 0.90 today from peak of 1.68 -continue diuresis -am bmp (6) Cellulitis Current Visit: Yes Status: Acute Assessment and Plan: -improved -continue oral doxy based on sensitivities (7) Type 2 diabetes mellitus Current Visit: Yes Status: Chronic Assessment and Plan: -Hold Metformin, low dose SSI. -will monitor (8) COPD (chronic obstructive pulmonary disease) Current Visit: Yes Status: Chronic Assessment and Plan: not in exacerbation, on DUONEB abd Albuterol aerosols PRN. (9) DVT prophylaxis Current Visit: Yes Status: Acute Assessment and Plan: xarelto (10) Hypomagnesemia Current Visit: Yes Status: Acute Assessment and Plan: resolved (11) Transaminitis Current Visit: Yes Status: Acute Assessment and Plan: Patient developed transaminitis AST is 548 AST is 346; these were within normal limits previously -Unclear etiology, suspect 2/2 portal hypertension with heart failure vs amiodarone -AST similar/ALT increasing -No abdominal pain -check RUQ ultrasound -consult GI for evaluation -will follow cmp in am DVT Prophylaxis: xarelto - Summary of Assessment and Plan Summary of Assessment and Plan: Patient initially presented with severe sepsis and subsequently developed decompensated heart failure secondary to IV fluids that were required for sepsis -Renal function is improving with diuresis will continue -Transaminitis is worsening we will consult GI -A. fib with RVR is remains uncontrolled possibly add digoxin vs inc BB if BP allows -Pt remains very high risk for decompensation - Time Spent with Patient Total time spent is greater than 50% in coordination of care (as documented) at patient's floor/unit and/or counseling patient: Greater than 35 minutes Plan of Care Discussed with: nurse Internal Medicine: Result - Labs CBC & Chem 7: 07/09/18 04:00 07/10/18 04:20 Labs: BMP 07/10/18 04:20 Sodium 135 L Potassium 4.9 Chloride 102 Carbon Dioxide 27 BUN 43 H Creatinine 0.90 Glucose 132 H Calcium 8.8 Liver Function 07/10/18 Range/Units 04:20 Total Bilirubin 1.0 (0.3-1.0) mg/dL AST 334 H (13-39) Units/L ALT > 500 H (7-52) Units/L Alkaline Phosphatase 114 H (34-104) Units/L Albumin 3.3 L (3.5-5.7) g/dL - ABG Interpretation ABG results: PT/INR, D-dimer PT 14.4 Seconds (9.4-12.1) H 07/07/18 18:00 Consult Discharge Plan - Plan Referrals: Kendal Mckenna MD [Family Provider] - (Patient is from [facility] no pcp appointment needed) [facility] - Prescriptions: Rivaroxaban [Xarelto] 20 mg PO DAILY 30 Days #30 tablet (3) Heart failure Qualifiers: Heart failure type: combined systolic and diastolic Heart failure chronicity : chronic Qualified Code(s): I50.42 - Chronic combined systolic (congestive) and diastolic (congestive) heart failure (6) Cellulitis Qualifiers: Site of cellulitis of extremity: lower extremity Laterality: right (7) Type 2 diabetes mellitus Qualifiers: Diabetes mellitus ad terminal makeup operator insulin use: without ad terminal makeup operator use Diabetes mellitus complication status: without complication Qualified Code(s): E11.9 - Type 2 diabetes mellitus without complications (8) COPD (chronic obstructive pulmonary disease) Qualifiers: COPD type: emphysema Emphysema type: panlobular Qualified Code(s): J43.1 - Panlobular emphysema
[2018-07-10 08:52] LABS: Bilirubin,Direct 0.4 mg/dL (0.0-0.2); Bilirubin,Total 1.1 mg/dL (0.3-1.0)
[2018-07-10 10:04] LABS: Basophils % 0.4 %; Eosinophils # 0.1 K/mcL (0.0-0.6); Eosinophils % 0.6 %; Hematocrit 38.5 % (37.5-50.1); Hemoglobin 11.7 g/dL (12.9-16.9); Immature Granulocytes % 1.3 % (0-4); Lymphocytes # 0.6 K/mcL (0.6-4.6); Mean Corpuscular HGB Conc 30.4 g/dL (31.6-35.5); Mean Corpuscular Volume 92.1 fL (83.0-100.0); Mean Platelet Volume 11.8 fL (9.4-12.4); Monocytes # 0.9 K/mcL (0.0-1.3); Monocytes % 10.6 %; Neutrophils # 6.7 K/mcL (1.6-8.9); Nucleated Red Blood Cells 0.5 /100 WBC (0); Platelet Count 130 K/mcL (140-400); Red Blood Count 4.18 M/mcL (4.19-5.50); Red Cell Distribution Width 16.4 % (11.5-14.5); Segmented Neutrophils % 80.1 %
[2018-07-10] MEDS: *HR* Digoxin 0.5 MG/2 ML AMPUL IVP SCH ×2 (10:36→13:01)
[2018-07-10 10:59] LABS: ABG Base Excess 5 mEq/L (-2 to 3); ABG HCO3 30 mEq/L (21-27); ABG Oxygen Saturation 98 % (95-98); ABG PCO2 48 mmHg (35-45); ABG PO2 101 mmHg (85-104); ABG TCO2 32 mEq/L (20-26)
--- NOTE | 2018-07-10 11:05 | Cardiology Progress Note ---
Date of Encounter: 07/10/18 Time of Encounter: 10:30 Assessment and Plan (1) Atrial fibrillation with RVR Current Visit: Yes Status: Acute New-onset atrial fibrillation with RVR during stay. Presented in NSR. Likely exacerbated by sepsis and now with fluid overload. Cardizem should be avoided with known CMP. EF 30%. Toprol XL was increased to 50 mg daily. HR increased this morning and noted to be hypotensive. Discussed with Dr. Clement, digoxin is a good option at this point. I will start IV load today. Avg HR 115 bpm overnight. CHADS VASc= 5 . He was started on xarelto yesterday. We will continue to monitor. (2) Chronic systolic CHF (congestive heart failure) Current Visit: Yes Status: Acute H/o ICMP, CHFrEF. Follows with [facility] [place]. Recent ICD placed for CMP. TTE reviewed:LVEF 30%. LV systolic function appears globally reduced but LV endocardial border not well visualized in all views. Definity echo contrast was used. There is no LV thrombus. Moderately dilated left ventricle. Diastolic dysfunction, possibly elevated filling pressures. RV is dilated. Function grossly appears reduced but is normal by tissue doppler. No significant valvular dysfunction by Doppler. Valves were not well visualized. Unable to estimate RVSP due to suboptimal TR signal. Increased RA pressures. Records from [facility] reviewed- EF known to be 15-20%, dilated cardiomyopathy. ICD placed in November. S/p multiple PCI in the past. No recent LHC. Noted to have increased BLE and weight gain during stay. Initially treated with IV fluid for KARISHMA and hypotension with sepsis. Positive 5L yesterday and now down to + 2240. IV lasix increased yesterday. 1500 ml fluid restriction. Strict I&O and daily weights. Continue bb. Lisinopril held on admit due to KARISHMA/ CKD. Consider restarting if b/p allows. Discussion w patient/family: The assessment and plan as outlined above was discussed with the patient and/or family members who expressed understanding and agreement. All questions were answered. Thank you for involving us in the care of your patient. Please call with any questions. Subjective Principal diagnosis: AFib with RVR, CHF Interval history: Mr. Galaviz denies new symptoms today. He is drowsy. Family at bedside. Reports received from [facility]. Objective Vital Signs, Last 4 Hours Pulse Resp BP Pulse Ox 07/10/18 10:51 128 20 94 07/10/18 10:43 18 94 07/10/18 10:03 123 18 91/77 94 07/10/18 10:00 91/77 07/10/18 09:20 114 07/10/18 09:04 122 22 109/81 95 07/10/18 08:11 125 07/10/18 07:50 120 18 111/94 99 07/10/18 07:38 84/60 07/10/18 07:37 118 18 85/69 07/10/18 07:31 97 General: No Apparent Distress HEENT: Atraumatic, Normocephaly, Mucus Membranes Moist Neck: No JVD, Normal carotid pulses Cardiac: Other (irregularly irregular) Lungs: Normal Breath Sounds, No Wheeze, Rales, Rhonchi Neuro: No focal deficits noted, Other (drowsy) Abdomen: Soft, Non-Tender Skin: Other (BLE with redness and blisters, BLE wrapped. ) Musculoskeletal: No Chest Wall Tenderness Extremities: No Clubbing, No Cyanosis, Normal Pulses, Other (2+ BLE edema) Results 07/10/18 09:50 07/10/18 04:20 Lab Results 07/10/18 07/10/18 07/10/18 04:20 08:08 09:50 WBC 8.3 Hgb 11.7 L Hct 38.5 Plt Count 130 L Sodium 135 L Potassium 4.9 Chloride 102 Carbon Dioxide 27 BUN 43 H Creatinine 0.90 Glucose 132 H Calcium 8.8 Magnesium 2.1 Total Bilirubin 1.0 1.1 H AST 334 H ALT > 500 H Alkaline Phosphatase 114 H - Imaging and Cardiology Echo: report reviewed - EKG Interpretation EKG results cardiology: personally reviewed Consult Discharge Plan - Plan Referrals: Kendal Mckenna MD [Family Provider] - (Patient is from [facility] no pcp appointment needed) [facility] [[facility] Care Provider[facility] - Prescriptions: Rivaroxaban [Xarelto] 20 mg PO DAILY 30 Days #30 tablet
[2018-07-10] MEDS: Lactulose Oral Soln 20 GM/30 ML UDC PO SCH ×2 (13:00→20:52)
[2018-07-10 13:37] LABS: Prothrombin Time 22.6 Seconds (9.4-12.1)
--- NOTE | 2018-07-10 14:01 | Gastroenterology Consult Note ---
<Jas Joe - Last Filed: 07/10/18 13:56> Date of Encounter: 07/10/18 Time of Encounter: 10:40 - Assessment and plan (1) Transaminitis Current Visit: Yes Status: Acute Assessment and plan: Could be secondary to CHF. Complete liver work up (AFP, alpha-1 antitrypsin, YASIR , ANCA, ceruloplasmin, F actin, ferritin, hepatitis profile, AMA, PT/INR) and RUQ US. (2) Chronic systolic CHF (congestive heart failure) Current Visit: Yes Status: Acute - Time Spent With Patient Total time spent is greater than 50% in coordination of care (as documented) at patient's floor/unit and/or counseling patient: GI History of Present Illness - Data of Consult Patient: new to practice Consult date: 07/10/18 Requesting Physician: Clinton Avila DO - Consult Narrative Reason for consult: Transaminitis History of present illness: Mr. Galaviz is a 68 year old male with PMHx of cardiomyopathy, s/p ICD/ defibrillator placement, CHF, DM, HLD, HTN, MD who presented in transfer from [facility] ER for concerns of sepsis, chronic CHF, and COPD. He presented there with complaints of shortness of breath, chills, fevers , and low blood pressure. He follows primarily with the [facility] and [facility] in [place]. We were consulted to evaluate his transaminitis. AST and ALT were within normal limits on 07/06, on 07/08 AST 548 and ALT 346. Today AST 334 and ALT >500, Total bili is slightly elevated today at 1.1. RUQ US was ordered today. Procedures: None NSAIDs: ASA Anticoagulation: Xarelto Past Med Surg Social Fam HX - Past Medical History Medical history: cardiomyopathy, CHF, coronary artery disease, diabetes, hyperlipidemia, hypertension, myocardial infarction Additional medical history: AICD Psychiatric history: no psych history - Past Surgical History Surgical History: pacemaker/AICD, other - Social History Smoking Status: Former smoker Smokeless Tobacco Status: No Alcohol use: none Drug use: none - Family History Mother Living Status: Cause of : ovarian CA Father Living Status: Cause of : COPD - Gastrointestinal Gastrointestinal: Present: as per HPI - Constitutional Constitutional: as per HPI - EENT Eyes: as per HPI Ears: Present: as per HPI Nose, mouth and throat: Present: as per HPI - Cardiovascular Cardiovascular ROS: Present: as per HPI - Respiratory Respiratory IM: Present: as per HPI - Genitourinary Genitourinary: Absent: change in color, Urinary frequency - Neurological ROS Neurological GI: Present: as per HPI - Hematologic/Lymphatic Hematologic/Lymphatic pediatric: Present: as per HPI - Musculoskeletal Musculoskeletal ROS GI: Present: as per HPI - Integumentary Integumentary GI: Present: as per HPI - Psychiatric ROS Psychiatric GI: Present: as per HPI - Endocrine Endocrine IM: Present: as per HPI - Constitutional Vitals: Temp Pulse Resp BP Pulse Ox 97.6 F 116 18 93/64 97 07/10/18 06:48 07/10/18 13:55 07/10/18 13:55 07/10/18 13:55 07/10/18 13:55 General appearance: Present: cooperative, A&O X 3, no acute distress, answers questions appropriately - Head Head exam: Present: atraumatic, normocephalic - Eye Eye exam: Present: normal appearance, sclera anicteric - ENT ENT exam: Present: mucous membranes dry - Neck Neck exam general surgery: Present: normal inspection, trachea midline - Respiratory Respiratory exam: Present: decreased breath sounds, wheezes - Cardiovascular Cardiovascular exam: Present: RRR, +S1, +S2 - GI/Abdominal GI/Abdominal exam: Present: firm, soft, no peritoneal signs. Absent: distended , guarding, tenderness - Rectal Rectal exam: Present: deferred - Extremities Exam Extremities exam: Present: warm - Neurological Exam Neurological exam: Present: no focal deficits - Psychiatric Psychiatric exam: Present: normal affect, normal mood - Skin Skin exam: Present: dry, intact, normal color, warm Results - Labs CBC & Chem 7: 07/10/18 09:50 07/10/18 04:20 Labs: Last Result Calcium 8.8 mg/dL (8.6-10.3) 07/10/18 04:20 Entire Visit Hgb 11.7 g/dL (12.9-16.9) L 07/10/18 09:50 Hct 38.5 % (37.5-50.1) 07/10/18 09:50 PT 22.6 Seconds (9.4-12.1) H D 07/10/18 13:10 Total Bilirubin 1.1 mg/dL (0.3-1.0) H 07/10/18 08:08 AST 334 Units/L (13-39) H 07/10/18 04:20 ALT > 500 Units/L (7-52) H 07/10/18 04:20 Ammonia 57 mcmol/L (16-53) H 07/10/18 09:50 - ABG ABG results: ABG ABG pH 7.40 pH Units (7.32-7.45) 07/10/18 10:56 ABG pCO2 48 mmHg (35-45) H 07/10/18 10:56 ABG pO2 101 mmHg (85-104) 07/10/18 10:56 ABG O2 Saturation 98 % (95-98) 07/10/18 10:56 PT/INR, D-dimer PT 22.6 Seconds (9.4-12.1) H D 07/10/18 13:10 - Impressions Impressions Chest X-Ray 07/10/18 07:42 IMPRESSION: Stable prominence of pulmonary vasculature with probable small bilateral pleural effusions and bibasilar atelectasis. D/ / Harvey Alcala / Harvey Alcala Interpreting Provider: Harvey Alcala Abdomen Ultrasound 07/10/18 11:00 IMPRESSION: 1. Hepatic steatosis and hepatomegaly. D/ / Nohemy Young MD / Nohemy Young MD Interpreting Provider: Nohemy Young MD Consult Discharge Plan - Plan Referrals: [facility]PC[facility] [Primary Care Provider] - 07/23/18 10:30 am ([phone] Jeff Wheatley MD [Partnered Physician] - (SENT WEB REQUEST ON 07-10-18 @ [phone]) Prescriptions: Rivaroxaban [Xarelto] 20 mg PO DAILY 30 Days #30 tablet <Gul,Jeff - Last Filed: 07/10/18 22:30> Date of Encounter: 07/10/18 Time of Encounter: 18:00 - Time Spent With Patient Total time spent is greater than 50% in coordination of care (as documented) at patient's floor/unit and/or counseling patient: GI History of Present Illness - Data of Consult Requesting Physician: Clinton Avila DO - Consult Narrative History of present illness: Mr. Galaviz is a 68 year old male - Constitutional Vitals: Temp Pulse Resp BP Pulse Ox 97.8 F 100 20 109/80 91 07/10/18 20:18 07/10/18 20:18 07/10/18 20:18 07/10/18 20:18 07/10/18 20:18 Results - Labs CBC & Chem 7: 07/10/18 09:50 07/10/18 04:20 Labs: Last Result Calcium 8.8 mg/dL (8.6-10.3) 07/10/18 04:20 Ferritin 909 ng/mL (20-250) H 07/10/18 13:10 Entire Visit Hgb 11.7 g/dL (12.9-16.9) L 07/10/18 09:50 Hct 38.5 % (37.5-50.1) 07/10/18 09:50 PT 22.6 Seconds (9.4-12.1) H D 07/10/18 13:10 Ferritin 909 ng/mL (20-250) H 07/10/18 13:10 Total Bilirubin 1.1 mg/dL (0.3-1.0) H 07/10/18 08:08 AST 334 Units/L (13-39) H 07/10/18 04:20 ALT > 500 Units/L (7-52) H 07/10/18 04:20 Ammonia 57 mcmol/L (16-53) H 07/10/18 09:50 - ABG ABG results: ABG ABG pH 7.40 pH Units (7.32-7.45) 07/10/18 10:56 ABG pCO2 48 mmHg (35-45) H 07/10/18 10:56 ABG pO2 101 mmHg (85-104) 07/10/18 10:56 ABG O2 Saturation 98 % (95-98) 07/10/18 10:56 PT/INR, D-dimer PT 22.6 Seconds (9.4-12.1) H D 07/10/18 13:10 - Impressions Impressions Chest X-Ray 07/10/18 07:42 IMPRESSION: Stable prominence of pulmonary vasculature with probable small bilateral pleural effusions and bibasilar atelectasis. D/ / Harvey Alcala / Harvey Alcala Interpreting Provider: Harvey Alcala Abdomen Ultrasound 07/10/18 11:00 IMPRESSION: 1. Hepatic steatosis and hepatomegaly. D/ / Nohemy Young MD / Nohemy Young MD Interpreting Provider: Nohemy Young MD - Attending Attestation I have personally performed a face to face evaluation on this patient. I have reviewed and agree with the care plan. History and Exam by me shows: Pt seen. O/E: No RUQ tanderness. Assessment: Pt with CHF/At-fib RVR with elevated LFTS. Most prob due to CHF due to congestive hepatopathy but r/o other causes. Rec: Follow LFTS. Liver w/u
[2018-07-10] MEDS: *HR* Rivaroxaban 10 MG TABLET PO SCH (16:05)
[2018-07-10 16:53] LABS: Hepatitis B Surface Antigen Nonreactive (Nonreactive)
[2018-07-10] MEDS ORDERED: *HR* Digoxin 0.5 MG/2 ML AMPUL IVP ONE (21:00)
[2018-07-10] MEDS: traMADol 50 MG TABLET PO PRN (21:18)
[2018-07-11 03:07] LABS: Hepatitis A Antibody IgM Nonreactive (Nonreactive); Hepatitis B Core IgM Nonreactive (Nonreactive); Hepatitis C Virus Antibody Nonreactive (Nonreactive)
[2018-07-11] MEDS: Levalbuterol Neb 1.25 MG/3 ML IH SCH ×4 (03:34→22:08)
[2018-07-11 05:04] LABS: Basophils % 0.4 %; Eosinophils # 0.1 K/mcL (0.0-0.6); Eosinophils % 1.4 %; Hematocrit 37.8 % (37.5-50.1); Hemoglobin 11.6 g/dL (12.9-16.9); Immature Granulocytes % 4.1 % (0-4); Lymphocytes # 0.8 K/mcL (0.6-4.6); Lymphocytes % 10.4 %; Mean Corpuscular HGB Conc 30.7 g/dL (31.6-35.5); Mean Corpuscular Hemoglobin 28.9 pg (28.0-33.3); Mean Platelet Volume 11.9 fL (9.4-12.4); Monocytes # 0.8 K/mcL (0.0-1.3); Monocytes % 11.2 %; Neutrophils # 5.3 K/mcL (1.6-8.9); Platelet Count 159 K/mcL (140-400); Red Blood Count 4.02 M/mcL (4.19-5.50); Red Cell Distribution Width 16.2 % (11.5-14.5); Segmented Neutrophils % 72.5 %
[2018-07-11 05:34] LABS: Alanine Aminotransferase > 500 Units/L (7-52); Albumin 3.2 g/dL (3.5-5.7); Albumin/Globulin Ratio 0.8 (1.1-2.2); Alkaline Phosphatase 124 Units/L (34-104); Aspartate Amino Transferase 336 Units/L (13-39); BUN/Creatinine Ratio 43 (6-26); Bilirubin,Direct 0.3 mg/dL (0.0-0.2); Bilirubin,Indirect 0.7 mg/dL (0.0-1.2); Blood Urea Nitrogen 31 mg/dL (8-23); Calcium 8.9 mg/dL (8.6-10.3); Carbon Dioxide 32 mEq/L (23-29); Chloride 101 mEq/L (98-107); Globulin 3.8 g/dL (2.4-3.5); Glucose 124 mg/dL (70-105); Osmolality,Calculated 294 (280-300); Phosphorous 3.3 mg/dL (2.7-4.5); Potassium 4.4 mEq/L (3.5-5.1); Sodium 138 mEq/L (136-145); eGFR For Non-African Americans > 60 (> 60)
--- NOTE | 2018-07-11 09:10 | Internal Med Progress Note ---
Hospitalist Progress Note - Encounter Date of Encounter: 07/11/18 Time of Encounter: 08:54 - Subjective Interval History: Patient seen and examined at bedside. Pt with no acute overnight events. HR improved this am still average 100-115; digoxin added yesterday. Pt much more alert and responsive this am. States he does not remember much from the last few days. Pt states he doesnt feel great but doesnt elaborate. Denies chest pain, shortness of breath, nausea, vomiting, diarrhea. Patient denies abdominal pain. Patient was started on lactulose yesterday and had bowel movement. ABG from yesterday revealed only mild hypercapnea that is compensated and likely his baseline. CXR showed stable pulm vasc congestion - Exam Vitals: Temp Pulse Resp BP Pulse Ox 97.7 F 96 20 103/76 93 07/11/18 07:23 07/11/18 07:23 07/11/18 07:23 07/11/18 07:23 07/11/18 07:23 Exam: Constitutional: No acute distress, Alert, conversaitionally dyspnic buim improved and much more alert Psych: AAO x 3, appropirate, awake and alert HEENT: NCAT, EOMI Neck: supple Cardio: Irregularly irregular and tachycardic HR 95 now, +s1s2, no murmurs Resp: Good air movement, decreased breath sounds at bases secondary to habitus, slight bibasilar crackes Abd: soft, non tender/non distended, positive bowel sounds, no gaurding/reboud/ ridgitity, protuberant, negative murphys sign Extremities: 3+ pitting edema with statis dermatitis of bilateral lower extremities; anasarca present and slightly improved Neuro: no focal deficits appreciated - Assessment and Plan (1) Acute respiratory failure with hypoxia Current Visit: Yes Status: Acute Assessment and Plan: Pt requiring 2-5L NC to maintain adequate oxygenation -pulse ox adequate on supplemental oxygen -likely 2/2 decompensated systolic HF -continue diuresis -chest xray reviewed and with stable pulm vasc congrestion -ABG reviewed revealed mild hypercapnea with compensted PH -may require bipap if decompensates but currently improving (2) Acute metabolic encephalopathy Current Visit: Yes Status: Acute Assessment and Plan: Pt developed alteration in mental status over several days -this is much improved today -likely secondary to toxic metabolic encephalopathy due to sepsis, hypoxia, hyperammonemia and mild hypercapnia -sepsis resolved, continue lactulose, continue diuresis -will monitor (3) Atrial fibrillation with RVR Current Visit: Yes Status: Acute Assessment and Plan: -Patient developed new onset atrial fibrillation with rapid ventricular response with CHADSVASC of 5 -Continues to have intermitent RVR -Patient received IV amiodarone load 07/07 -off cardizem -on xarelto for ac -continue toprolol xl 50 daily; bp may be able to tolerate 75mg daily now -Digoxin started yesterday with slight improvment; continue -cardio following (4) Heart failure Current Visit: Yes Status: Chronic Assessment and Plan: Acute on chronic decompensated heart failure with diastolic and systolic dysfunction -Echo verified that he has EF of 30%, globally reduced LV function with mild dilatation, and diastolic dysfunction with possibly elevated filling pressures -still volume overloaded but improving -cardio following -on asa, bb -flor inhibitor and aldactone held 2/2 karishma -iv diuresis will continue; renal function continues to improve with diuresis; consider change to orals soon -Patient 12 kg weight gain this admission; wt starting to decrease slowly -now with negative fluid balance since admission of -1.3L -strict I/Os, daily weights (5) Severe sepsis Current Visit: Yes Status: Acute Assessment and Plan: presented with chills, hypotension, tachycardia, and leukocytosis > 20 lactic acid 5 on admission, blood culture growing group b strep; repeat cx negative to date suspected source was lower extremity cellulitis which appears resolved BP and lactic acid improved with IVF but developed KARISHMA with Cr at 1.68 -> initialy suspected ATN from sepsis continue oral doxy for now but with hepatic dysfunction may be better to change regimen? possibly to augmentin? will consult ID for abx choice and duration Sepsis resolved monitor BP closely (6) KARISHMA (acute kidney injury) Current Visit: Yes Status: Acute Assessment and Plan: -suspect initial KARISHMA from ATN from sepsis vs. ADRIEL vs. ATN from hemodynamics -supsequent worsenig of KARISHMA after initial improvment likely 2/2 decreased effective circulating volume -Scr imrpoving with diuresis to 0.72 today from peak of 1.68 -continue diuresis; transition to orals sometime soon -am bmp (7) Cellulitis Current Visit: Yes Status: Acute Assessment and Plan: -improved -continue oral doxy based on sensitivities -consult ID for abx recs and duration due to hepatic dysfunction currently (8) Type 2 diabetes mellitus Current Visit: Yes Status: Chronic Assessment and Plan: -Hold Metformin, low dose SSI. -will monitor (9) COPD (chronic obstructive pulmonary disease) Current Visit: Yes Status: Chronic Assessment and Plan: not in exacerbation, on DUONEB abd Albuterol aerosols PRN. (10) DVT prophylaxis Current Visit: Yes Status: Acute Assessment and Plan: xarelto (11) Hypomagnesemia Current Visit: Yes Status: Acute Assessment and Plan: resolved (12) Transaminitis Current Visit: Yes Status: Acute Assessment and Plan: Patient developed transaminitis ; these were within normal limits previously -Unclear etiology, suspect 2/2 portal hypertension with heart failure vs amiodarone vs other -AST similar/ALT >500 -No abdominal pain -RUQ US showed hepatic statosis and hepatomegaly -GI Following with liver workup pending -will follow cmp in am -mild hyperammonemia; lacutlose started yesterday; will increase today DVT Prophylaxis: xarelto - Summary of Assessment and Plan Summary of Assessment and Plan: Mental status is much improved today, much more alert GI following regarding transaminitis We will consult ID for antibiotic selection and recommendations regarding group B strep bacteremia in light of hepatic dysfunction Await PT, OT evaluation, may benefit from inpatient rehabilitation at discharge Improving, likely transition to oral diuretic soon Still with elevated HR; may increase BB if bp allows Cardio following Remains very high risk for complications and deterioration - Time Spent with Patient Total time spent is greater than 50% in coordination of care (as documented) at patient's floor/unit and/or counseling patient: 25 - 35 minutes Plan of Care Discussed with: patient Internal Medicine: Result - Labs CBC & Chem 7: 07/11/18 04:48 07/11/18 04:48 Labs: Short CBC 07/10/18 07/11/18 Range/Units 09:50 04:48 WBC 8.3 7.2 (4.3-11.1) K/mcL Hgb 11.7 L 11.6 L (12.9-16.9) g/dL Hct 38.5 37.8 (37.5-50.1) % Plt Count 130 L 159 (140-400) K/mcL Neutrophils # 6.7 5.3 (1.6-8.9) K/mcL BMP 07/11/18 04:48 Sodium 138 Potassium 4.4 Chloride 101 Carbon Dioxide 32 H BUN 31 H Creatinine 0.72 Glucose 124 H Calcium 8.9 Liver Function 07/11/18 Range/Units 04:48 Total Bilirubin 1.0 (0.3-1.0) mg/dL Direct Bilirubin 0.3 H (0.0-0.2) mg/dL AST 336 H (13-39) Units/L ALT > 500 H (7-52) Units/L Alkaline Phosphatase 124 H (34-104) Units/L Albumin 3.2 L (3.5-5.7) g/dL - ABG Interpretation ABG results: ABG ABG pH 7.40 pH Units (7.32-7.45) 07/10/18 10:56 ABG pCO2 48 mmHg (35-45) H 07/10/18 10:56 ABG pO2 101 mmHg (85-104) 07/10/18 10:56 ABG O2 Saturation 98 % (95-98) 07/10/18 10:56 PT/INR, D-dimer PT 22.6 Seconds (9.4-12.1) H D 07/10/18 13:10 - Impressions Impressions Abdomen Ultrasound 07/10/18 11:00 IMPRESSION: 1. Hepatic steatosis and hepatomegaly. D/ / Nohemy Young MD / Nohemy Young MD Interpreting Provider: Nohemy Young MD - VTE Documentation of Mechanical Device: Graduated compression elastic hosiery Consult Discharge Plan - Plan Referrals: [place],PCP [Primary Care Provider] - 07/23/18 10:30 am ([phone]) Jeff Wheatley MD [Partnered Physician] - (SENT WEB REQUEST ON 07-10-18 @ [phone]) Prescriptions: Rivaroxaban [Xarelto] 20 mg PO DAILY 30 Days #30 tablet (4) Heart failure Qualifiers: Heart failure type: combined systolic and diastolic Heart failure chronicity : chronic Qualified Code(s): I50.42 - Chronic combined systolic (congestive) and diastolic (congestive) heart failure (7) Cellulitis Qualifiers: Site of cellulitis of extremity: lower extremity Laterality: right (8) Type 2 diabetes mellitus Qualifiers: Diabetes mellitus manager long term care insulin use: without manager long term care use Diabetes mellitus complication status: without complication Qualified Code(s): E11.9 - Type 2 diabetes mellitus without complications (9) COPD (chronic obstructive pulmonary disease) Qualifiers: COPD type: emphysema Emphysema type: panlobular Qualified Code(s): J43.1 - Panlobular emphysema
[2018-07-11] MEDS: traMADol 50 MG TABLET PO PRN (09:13)
[2018-07-11] MEDS: Furosemide 40 MG/4 ML VIAL IVP SCH ×2 (09:13→16:21)
[2018-07-11] MEDS: Aspirin Enteric Coated 81 MG Tablet PO SCH (09:13)
[2018-07-11] MEDS: Metoprolol XL (24 HR) Succ 50 MG TAB.ER.24H PO SCH (09:13)
[2018-07-11] MEDS: Gabapentin 300 MG CAPSULE PO SCH ×3 (09:14→20:44)
[2018-07-11] MEDS: Lactulose Oral Soln 20 GM/30 ML UDC PO SCH ×2 (09:14→20:44)
[2018-07-11] MEDS: *HR* Digoxin 0.125 MG TABLET PO SCH (09:14)
[2018-07-11] MEDS: Doxycycline 100 MG CAPSULE PO SCH (09:14)
[2018-07-11] MEDS: Insulin LISPRO 300 UNITS/3 ML VIAL SQ SCH ×3 (09:15→16:21)
--- NOTE | 2018-07-11 10:05 | Electrocardiograph Report ---
[place] [id number] Test Date: 2018-07-07 Pat Name: Jose Galaviz Department: 110 Room: 2N06 Gender: M Campus Aide: GEORGE : 1950 Requested By: Jens Machado Order Number: [id number] Reading MD: Tayo Rausch Measurements Intervals [place] Rate: 131 P: [place]: 0 QRS: 73 QRSD: 124 T: -60 QT: 307 QTc: 384 Interpretive Statements ATRIAL FIBRILLATION WITH RAPID VENTRICULAR RESPONSE ABERRANT CONDUCTION OR VENTRICULAR PREMATURE COMPLEXES POSSIBLE ANTERIOR MYOCARDIAL INFARCTION, PROBABLY OLD Electronically Signed On 07-11-2018 10:03:54 EDT by Tayo Rausch
--- NOTE | 2018-07-11 11:07 | Cardiology Progress Note ---
Date of Encounter: 07/11/18 Time of Encounter: 11:05 Assessment and Plan (1) Atrial fibrillation with RVR Current Visit: Yes Status: Acute New-onset atrial fibrillation with RVR during stay. Presented in NSR. Likely exacerbated by sepsis and fluid overload. Cardizem should be avoided with known CMP. EF 30%. Toprol XL was increased to 50 mg daily. Digoxin added 07/10/18. HR improved. HR 90's during my exam. Avg HR was 107 bpm. Blood pressure improved. Will increase toprol xl. CHADS VASc= 5 . He was started on xarelto during his stay. (2) Chronic systolic CHF (congestive heart failure) Current Visit: Yes Status: Acute H/o ICMP, CHFrEF. Follows with [facility]. Recent ICD placed for CMP. TTE reviewed:LVEF 30%. LV systolic function appears globally reduced but LV endocardial border not well visualized in all views. Definity echo contrast was used. There is no LV thrombus. Moderately dilated left ventricle. Diastolic dysfunction, possibly elevated filling pressures. RV is dilated. Function grossly appears reduced but is normal by tissue doppler. No significant valvular dysfunction by Doppler. Valves were not well visualized. Unable to estimate RVSP due to suboptimal TR signal. Increased RA pressures. [facility] from [facility] reviewed- EF known to be 15-20%, dilated cardiomyopathy. ICD placed in November. S/p multiple PCI in the past. No recent LHC. Noted to have increased BLE and weight gain during stay. Initially treated with IV fluid for KARISHMA and hypotension with sepsis. Positive 5L yesterday and now down to -1325 ml. 1500 ml fluid restriction. Strict I&O and daily weights. Continue bb. Lisinopril held on admit due to KARISHMA/ CKD. Consider restarting if b/p allows. Continue lasix. Discussion w patient/family: The assessment and plan as outlined above was discussed with the patient and/or family members who expressed understanding and agreement. All questions were answered. Thank you for involving us in the care of your patient. Please call with any questions. Subjective Principal diagnosis: AFib with RVR, CHF Interval history: Mr. Galaviz denies new symptoms today. Reports he is feeling better. States that he will need rehab. Objective Vital Signs, Last 4 Hours Temp Pulse Resp BP Pulse Ox 07/11/18 10:49 16 90 07/11/18 07:23 97.7 F 96 20 103/76 93 General: Conversant, No Apparent Distress, Other (More alert today, morbidly obese male) HEENT: Atraumatic, Normocephaly, Mucus Membranes Moist Neck: No JVD, Normal carotid pulses Cardiac: Other (Irregularly irregular) Lungs: Normal Breath Sounds, No Wheeze, Rales, Rhonchi Neuro: Alert and responsive, No focal deficits noted Abdomen: Soft, Non-Tender Skin: No rashes noted on visualized skin Musculoskeletal: No Chest Wall Tenderness Extremities: No Clubbing, No Cyanosis, Normal Pulses, Other (1+ BLE edema , reness noted on BLE. Leg wraps intact.) Results 07/11/18 04:48 07/11/18 04:48 Lab Results 07/10/18 07/11/18 07/11/18 13:10 04:48 04:48 WBC 7.2 Hgb 11.6 L Hct 37.8 Plt Count 159 INR 2.0 D Sodium 138 Potassium 4.4 Chloride 101 Carbon Dioxide 32 H BUN 31 H Creatinine 0.72 Glucose 124 H Calcium 8.9 Magnesium 2.0 Total Bilirubin 1.0 AST 336 H ALT > 500 H Alkaline Phosphatase 124 H - Imaging and Cardiology Echo: report reviewed - EKG Interpretation EKG results cardiology: personally reviewed - VTE Documentation of Mechanical Device: Graduated compression elastic hosiery Consult Discharge Plan - Plan Referrals: [place],PCP [Primary Care Provider] - 07/23/18 10:30 am (Please fax over discharge info to the [place] [phone]) Jeff Wheatley MD [Partnered Physician] - (SENT WEB REQUEST ON 07-10-18 @ [phone]) Prescriptions: Rivaroxaban [Xarelto] 20 mg PO DAILY 30 Days #30 tablet
[2018-07-11] MEDS ORDERED: Metoprolol XL (24 HR) Succ 25 MG TAB.ER.24H PO ONE (11:23)
--- NOTE | 2018-07-11 14:24 | Infectious Disease Consult ---
Date of Encounter: 07/11/18 Time of Encounter: 14:23 Assessment and Plan (1) Severe sepsis Status: Acute Assessment and plan: On admission patient had sepsis with lactic acidosis and bandemia Likely secondary to group B streptococcus bacteremia (2) Bacteremia due to group B Streptococcus Status: Acute Assessment and plan: 2 out of 2 sets positive on 07/05/18. Repeat cultures that same day are no growth to date Source not clear could be cellulitis but urinalysis and urine culture not suggestive of UTI and the patient was asymptomatic Patient has been on broad-spectrum antibiotics and was the escalated to doxycycline DC doxycycline Start penicillin G 24 million units. Duration of treatment through 07/20/2018 If patient continues to do well clinically consider de-escalating to oral Keflex Monitor labs and for drug toxicity (3) Transaminitis Status: Acute Assessment and plan: Etiology not clear. Clearly this is acute sudden increase in transaminitis. Initially they were normal on admission. Could this be due to sepsis itself and the lactic acidosis? Hepatitis A, B, and C have been ordered and were negative. Elevated Bilirubin elevated. Ultrasound of the liver has been reviewed. (4) KARISHMA (acute kidney injury) Status: Acute Assessment and plan: Resolved. Creatinine clearance within normal limit (5) Venous stasis of both lower extremities Status: Acute (6) Morbid obesity with BMI of 50.0-59.9, adult Status: Acute (7) Cellulitis Status: Acute Assessment and plan: Currently patient appears to have bilateral lower extending to venous stasis. Keep in mind that evaluating the patient 6 days after admission so I am not sure how his cellulitis looks like on admission. Clinically it is improved. We will start Bactrim to cover cellulitis. Duration of treatment 3 more days. Qualifiers: Site of cellulitis: extremity Site of cellulitis of extremity: lower extremity Laterality: right Qualified Code(s): L03.115 - Cellulitis of right lower limb (8) Type 2 diabetes mellitus Status: Chronic Qualifiers: Diabetes mellitus residential insulin use: without residential use Diabetes mellitus complication status: without complication Qualified Code(s): E11.9 - Type 2 diabetes mellitus without complications (9) COPD (chronic obstructive pulmonary disease) Status: Chronic Qualifiers: COPD type: emphysema Emphysema type: panlobular Qualified Code(s): J43.1 - Panlobular emphysema Infectious Disease HPI - Data of Consult Patient: new to practice Consult date: 07/11/18 Requesting Physician: Clinton Avila DO [facility] Provider: Kendal Mckenna - Consult Narrative Reason for consult: severe sepsis History of present illness: Mr. Galaviz is a 68 year old male Patient is a 68-year-old gentleman who presented to [place] on 07/05/2018 with shortness of breath fevers and chills and was admitted for sepsis and cellulitis , we will consult to today on 07/11/2018 for group B strep bacteremia 2 out of 2 sets. So patient is 68-year-old gentleman who was transferred from [facility] emergency department for sepsis. Patient was complaining of shortness of breath fevers and chills. Patient was transferred to [place] for further evaluation. Since admission, patient has been afebrile with a MAXIMUM TEMPERATURE of 99.7 Fahrenheit he was slightly hypotensive with a low pressure in the 90s over 50s when he presented, no tachypnea and no tachycardia. Presenting WBC was 20,000 with neutrophilic predominance and 91% no bands. Patient was also noted to be in acute kidney injury with creatinine of 1.68 and a BUN of 27. Patient had a lactic acidosis with a lactic acid of 2.8. AST ALT were also normal initially but during the hospital stay they increased to 548 and 346 respectively with normal alkaline phosphatase. Hepatitis A, B and C antibodies were nonreactive. Blood cultures were obtained on 07/05, no growth to date but blood cultures obtained on 07/05 at the outside emergency department revealed group B strep 2 out of 2 sets the R pansensitive. A chest x-ray was obtained on 07/10 and it revealed stable prominence of pulmonary vasculature with probable small bilateral pleural effusion and bibasilar atelectasis. Liver ultrasounds revealed hepatic steatosis and hepatomegaly. A urinalysis was obtained at the outside hospital, and it was totally normal with no pyuria, no leukocyte esterase and no nitrites. A shunt was started on the following antibiotics. Doxycycline 07/09 - current Vancomycin 07/05 07/09 Zosyn 07/05 - 07/09 Were asked to evaluate the patients make further recommendations. Patient appears comfortable sitting up in the chair. Denies any complaints. On further questioning he tells me that on a day that he decided to come to the hospital he was having severe rigors and chills and felt febrile. Patient denied any urinary symptoms and any cough denies any chest pain denies any other complaints. CC: Clinton Avila, DO Past Med Surg Social Fam HX - Past Medical History Medical history: cardiomyopathy, CHF, coronary artery disease, diabetes, hyperlipidemia, hypertension, myocardial infarction Additional medical history: AICD Psychiatric history: no psych history - Past Surgical History Surgical History: pacemaker/AICD, other - Social History Smoking Status: Former smoker Smokeless Tobacco Status: No Alcohol use: none Drug use: none - Family History Mother Living Status: Cause of : ovarian CA Father Living Status: Cause of : COPD Infectious Disease-CN:Meds Aspirin [Lo-Dose Aspirin EC] 81 mg PO DAILY 07/05/18 [History] Atorvastatin Calcium [Lipitor] 80 mg PO HS 07/05/18 [History] Furosemide [Lasix] 80 mg PO BID 07/05/18 [History] Gabapentin [Neurontin] 600 mg PO TID 07/05/18 [History] Lisinopril [Zestril] 10 mg PO DAILY 07/05/18 [History] Metformin HCl [Fortamet] 1,000 mg PO BID 07/05/18 [History] Spironolactone [Aldactone] 25 mg PO DAILY 07/05/18 [History] Isosorbide MONOnitrate (24 HR) [Imdur] 30 mg PO DAILY 07/06/18 [History] Metoprolol Succinate [Toprol Xl] 25 mg PO DAILY 07/06/18 [History] Rivaroxaban [Xarelto] 20 mg PO DAILY 30 Days #30 tablet 07/08/18 [Rx] 3 Allergy/AdvReac Type Severity Reaction Status Date / Time No Known Allergies Allergy Verified 07/05/18 13:53 Review of systems: 10 point review of systems done, negative other for what mentioned in the history of present illness. Exam - Constitutional Vitals: Temp Pulse Resp BP Pulse Ox 97.7 F 96 19 108/64 92 07/11/18 11:33 07/11/18 07:23 07/11/18 11:33 07/11/18 13:12 07/11/18 11:33 General appearance: no acute distress, no febrile - Head Head exam: Present: atraumatic, normocephalic - Eye Eye exam: Present: EOMI, PERRL, sclera anicteric - ENT ENT exam: Present: mucous membranes dry, normal exam - Neck Neck exam: Present: full ROM. Absent: meningismus - Respiratory Respiratory exam: Present: CTAB. Absent: wheezes - Cardiovascular Cardiovascular exam: Present: RRR, +S1, +S2 - GI/Abdominal GI/Abdominal exam: Present: normal bowel sounds, soft Additional comments: Morbidly obese - Extremities Exam Additional comments: Bilateral lower extremity venous stasis. I did not appreciate any marily cellulitis right now. - Neurological Exam Neurological exam: Present: alert, oriented X3. Absent: speech deficit Infectious Disease CN: Results - Labs CBC & Chem 7: 07/11/18 04:48 07/11/18 04:48 Cultures: Cultures 07/05/18 22:04 Blood Culture - Final Peripheral Venipuncture No growth. Final report. 07/05/18 22:04 Blood Culture - Final Peripheral Venipuncture No growth. Final report. Serology: Serology 07/10/18 Range/Units 13:10 Hepatitis A IgM Ab Nonreactive (Nonreactive) Hep Bs Antigen Nonreactive (Nonreactive) Hep B Core IgM Ab Nonreactive (Nonreactive) Hepatitis C Ab Screen Nonreactive (Nonreactive) - VTE Documentation of Mechanical Device: Graduated compression elastic hosiery Consult Discharge Plan - Plan Referrals: SHARLA,PCP [Primary Care Provider] - 07/23/18 10:30 am ([facility] [phone]) Jeff Wheatley MD [Partnered Physician] - (SENT WEB REQUEST ON 07-10-18 @ [phone]) Prescriptions: Rivaroxaban [Xarelto] 20 mg PO DAILY 30 Days #30 tablet
[2018-07-11 15:39] LABS: AFP Tumor Marker Non-Pregnant 1 ng/mL (0-9)
[2018-07-11] MEDS: Penicillin G Potassium 4,000,000 UNIT in 0.9 % Sodium Chloride 100 ML IVPB SCH ×2 (16:20→20:44)
[2018-07-11] MEDS: *HR* Rivaroxaban 10 MG TABLET PO SCH (16:21)
[2018-07-12] MEDS: Penicillin G Potassium 4,000,000 UNIT in 0.9 % Sodium Chloride 100 ML IVPB SCH ×6 (00:25→22:04)
[2018-07-12] MEDS: Levalbuterol Neb 1.25 MG/3 ML IH SCH ×4 (03:52→21:52)
[2018-07-12 04:27] LABS: Alanine Aminotransferase 489 Units/L (7-52); Albumin/Globulin Ratio 0.8 (1.1-2.2); Alkaline Phosphatase 115 Units/L (34-104); Aspartate Amino Transferase 181 Units/L (13-39); BUN/Creatinine Ratio 34 (6-26); Bilirubin,Total 0.8 mg/dL (0.3-1.0); Blood Urea Nitrogen 26 mg/dL (8-23); Calcium 9.1 mg/dL (8.6-10.3); Carbon Dioxide 36 mEq/L (23-29); Chloride 98 mEq/L (98-107); Globulin 3.7 g/dL (2.4-3.5); Glucose 118 mg/dL (70-105); Magnesium 1.8 mg/dL (1.6-2.6); Osmolality,Calculated 296 (280-300); Potassium 4.4 mEq/L (3.5-5.1); Sodium 140 mEq/L (136-145); Total Protein 6.7 g/dL (6.4-8.9); eGFR For Non-African Americans > 60 (> 60)
[2018-07-12] MEDS: Insulin LISPRO 300 UNITS/3 ML VIAL SQ SCH ×3 (08:07→16:42)
[2018-07-12] MEDS: Metoprolol XL (24 HR) Succ 50 MG TAB.ER.24H PO SCH (08:39)
[2018-07-12] MEDS: Gabapentin 300 MG CAPSULE PO SCH ×3 (08:41→21:20)
[2018-07-12] MEDS: Lactulose Oral Soln 20 GM/30 ML UDC PO SCH ×2 (08:43→21:21)
[2018-07-12] MEDS: Furosemide 40 MG/4 ML VIAL IVP SCH ×2 (08:43→16:38)
[2018-07-12] MEDS: Aspirin Enteric Coated 81 MG Tablet PO SCH (08:43)
[2018-07-12] MEDS: *HR* Digoxin 0.125 MG TABLET PO SCH (08:44)
--- NOTE | 2018-07-12 10:02 | Internal Med Progress Note ---
Hospitalist Progress Note - Encounter Date of Encounter: 07/12/18 Time of Encounter: 10:00 - Subjective Interval History: Patient seen and examined at bedside. Pt with no acute overnight events. HR continues to improve; avg in 90s now. Denies any chest pain, shortness of breath, nausea, vomiting, diarrhea, or abd pain Patient does admit to shortness of breath with exertion. Patient states that he feels better overall and is much more alert. Diuresing well. - Exam Vitals: Temp Pulse Resp BP Pulse Ox 97.6 F 94 16 110/87 92 07/12/18 07:31 07/12/18 08:50 07/12/18 09:42 07/12/18 09:42 07/12/18 09:42 Exam: Constitutional: No acute distress, Alert, talking on phone when i arrived Psych: AAO x 3, appropirate, awake and alert HEENT: NCAT, EOMI Neck: supple Cardio: Irregularly irregular and tachycardic HR 90 now, +s1s2, no murmurs Resp: Good air movement, decreased breath sounds at bases secondary to habitus, continues to have rales in bases Abd: soft, non tender/non distended, positive bowel sounds, no gaurding/reboud/ ridgitity, protuberant, negative murphys sign Extremities: 3+ pitting edema that is slightly improved with statis dermatitis of bilateral lower extremities; anasarca present and slightly improved from prior Neuro: no focal deficits appreciated - Assessment and Plan (1) Acute respiratory failure with hypoxia Current Visit: Yes Status: Acute Assessment and Plan: Pt requiring 2-5L NC to maintain adequate oxygenation -pulse ox adequate on supplemental oxygen -wean oxygen as tolerated -likely 2/2 decompensated systolic HF -continue diuresis -chest xray reviewed and with stable pulm vasc congrestion -clinically improving (2) Acute metabolic encephalopathy Current Visit: Yes Status: Acute Assessment and Plan: Pt developed alteration in mental status over several days -continues to improve; pt seems at baseline and is AAO x 3 now -likely secondary to toxic metabolic encephalopathy due to sepsis, hypoxia, hyperammonemia and mild hypercapnia -sepsis resolved, continue lactulose, continue diuresis -will monitor (3) Atrial fibrillation with RVR Current Visit: Yes Status: Acute Assessment and Plan: -Patient developed new onset atrial fibrillation with rapid ventricular response with CHADSVASC of 5 -Continues to have intermitent RVR -Patient received IV amiodarone load 07/07 -on xarelto for ac -continue toprolol xl 75mg daily; increase as bp allows if needed -continue digoxin -cardio following (4) Heart failure Current Visit: Yes Status: Chronic Assessment and Plan: Acute on chronic decompensated heart failure with diastolic and systolic dysfunction -Echo verified that he has EF of 30%, globally reduced LV function with mild dilatation, and diastolic dysfunction with possibly elevated filling pressures -still volume overloaded but continues to improve -cardio following -on asa, bb -flor inhibitor and aldactone held 2/2 karishma -iv diuresis will continue; renal function continues to improve with diuresis; consider change to orals soon in next 24-48 hours hopefully -now with negative fluid balance since admission of -4.2L -strict I/Os, daily weights (5) Severe sepsis Current Visit: Yes Status: Acute Assessment and Plan: -presented with chills, hypotension, tachycardia, and leukocytosis > 20 -lactic acid 5 on admission, blood culture growing group b strep; repeat cx negative to date -suspected source was lower extremity cellulitis which appears resolved; now just with stasis dermatitis -ID following; changed doxy to IV penicillin; can change to keflex ad discharge ; continue through 07/20/18 -Sepsis resolved -monitor BP closely (6) KARISHMA (acute kidney injury) Current Visit: Yes Status: Acute Assessment and Plan: -suspect initial KARISHMA from ATN from sepsis vs. ADRIEL vs. ATN from hemodynamics -supsequent worsenig of KARISHMA after initial improvment likely 2/2 decreased effective circulating volume -Scr imrpoving with diuresis to 0.76 today from peak of 1.68 -continue diuresis; transition to orals sometime soon -am bmp (7) Cellulitis Current Visit: Yes Status: Acute Assessment and Plan: -improved/resolved -IV penicillin -ID following (8) Type 2 diabetes mellitus Current Visit: Yes Status: Chronic Assessment and Plan: -Hold Metformin, low dose SSI. -will monitor (9) COPD (chronic obstructive pulmonary disease) Current Visit: Yes Status: Chronic Assessment and Plan: not in exacerbation, on DUONEB abd Albuterol aerosols PRN. (10) Hypomagnesemia Current Visit: Yes Status: Acute Assessment and Plan: resolved (11) Transaminitis Current Visit: Yes Status: Acute Assessment and Plan: Patient developed transaminitis ; these were within normal limits previously -Unclear etiology, suspect 2/2 portal hypertension with heart failure vs amiodarone vs other -AST/ALT starting to improve today -No abdominal pain -RUQ US showed hepatic statosis and hepatomegaly -GI Following with liver workup pending -will follow cmp in am -mild hyperammonemia resolved with lacutlose (12) DVT prophylaxis Current Visit: Yes Status: Acute Assessment and Plan: xarelto DVT Prophylaxis: xarelto - Time Spent with Patient Total time spent is greater than 50% in coordination of care (as documented) at patient's floor/unit and/or counseling patient: 25 - 35 minutes Plan of Care Discussed with: patient Internal Medicine: Result - Labs CBC & Chem 7: 07/11/18 04:48 07/12/18 03:52 Labs: BMP 07/12/18 03:52 Sodium 140 Potassium 4.4 Chloride 98 Carbon Dioxide 36 H BUN 26 H Creatinine 0.76 Glucose 118 H Calcium 9.1 Liver Function 07/12/18 Range/Units 03:52 Total Bilirubin 0.8 (0.3-1.0) mg/dL AST 181 H (13-39) Units/L ALT 489 H (7-52) Units/L Alkaline Phosphatase 115 H (34-104) Units/L Albumin 3.0 L (3.5-5.7) g/dL - ABG Interpretation ABG results: ABG ABG pH 7.40 pH Units (7.32-7.45) 07/10/18 10:56 ABG pCO2 48 mmHg (35-45) H 07/10/18 10:56 ABG pO2 101 mmHg (85-104) 07/10/18 10:56 ABG O2 Saturation 98 % (95-98) 07/10/18 10:56 PT/INR, D-dimer PT 22.6 Seconds (9.4-12.1) H D 07/10/18 13:10 - VTE Documentation of Mechanical Device: Graduated compression elastic hosiery Consult Discharge Plan - Plan [facility] - 07/23/18 10:30 am ([facility] [phone]) Jeff Wheatley MD [Partnered Physician] - (SENT WEB REQUEST ON 07-10-18 @ 2618) Prescriptions: Rivaroxaban [Xarelto] 20 mg PO DAILY 30 Days #30 tablet (4) Heart failure Qualifiers: Heart failure type: combined systolic and diastolic Heart failure chronicity : chronic Qualified Code(s): I50.42 - Chronic combined systolic (congestive) and diastolic (congestive) heart failure (7) Cellulitis Qualifiers: Site of cellulitis: extremity Site of cellulitis of extremity: lower extremity Laterality: right Qualified Code(s): L03.115 - Cellulitis of right lower limb (8) Type 2 diabetes mellitus Qualifiers: Diabetes mellitus intermodal dispatcher insulin use: without intermodal dispatcher use Diabetes mellitus complication status: without complication Qualified Code(s): E11.9 - Type 2 diabetes mellitus without complications (9) COPD (chronic obstructive pulmonary disease) Qualifiers: COPD type: emphysema Emphysema type: panlobular Qualified Code(s): J43.1 - Panlobular emphysema
[2018-07-12] MEDS ORDERED: Magnesium Oxide 400 MG TABLET PO ONE (10:13)
--- NOTE | 2018-07-12 10:13 | Cardiology Progress Note ---
Date of Encounter: 07/12/18 Time of Encounter: 10:00 Assessment and Plan (1) Atrial fibrillation with RVR Current Visit: Yes Status: Acute New-onset atrial fibrillation with RVR during stay; unclear chronicity. Presented in NSR. Likely exacerbated by sepsis and fluid overload. Cardizem d/c'ed due to known ischemic CMP with reduced LVEF. Digoxin added on 07/10/18, BB increased yesterday. Expect HR to improve as sepsis improved. 12 hour tele: avg HR=92, HR 80's-90's upon exam. Goal HR less than 100. Continue Toprol 75 mg daily, may increase if needed. CHADS VASc= 5 . He was started on xarelto during his stay. (2) Chronic systolic CHF (congestive heart failure) Current Visit: Yes Status: Acute H/o ICMP, CHFrEF. Follows with [facility] medical [place]. Recent ICD placed for CMP. TTE reviewed: LVEF 30%. LV systolic function appears globally reduced but LV endocardial border not well visualized in all views. Definity echo contrast was used. There is no LV thrombus. Moderately dilated left ventricle. Diastolic dysfunction, possibly elevated filling pressures. RV is dilated. Function grossly appears reduced but is normal by tissue doppler. No significant valvular dysfunction by Doppler. Valves were not well visualized. Unable to estimate RVSP due to suboptimal TR signal. Increased RA pressures. Records from [facility] reviewed- EF known to be 15-20%, dilated cardiomyopathy. ICD placed in November. S/p multiple PCI in the past. No recent LHC. Noted to have increased BLE and weight gain during stay. Initially treated with IV fluid for KARISHMA and hypotension with sepsis. Continue BB. Consider resuming ACEi upon discharge if BP/renal function will tolerate. Cumulative I&O: -4275 mL; patient unsure of baseline weights. Reports dyspnea is near baseline. Appears volume overload on exam. Would recommend additional 24 -48 hours of IV diuresis if renal function allows. Transition to po lasix upon discharge with close outpatient follow-up with primary Cardiologists--follows at [facility]. Strict I&Os, daily weights, Na/fluid restricted diet. Continue MAYA wraps BLE. Discussion w patient/family: The assessment and plan as outlined above was discussed with the patient and/or family members who expressed understanding and agreement. All questions were answered. Thank you for involving us in the care of your patient. Please call with any questions. The patient will be discussed and reviewed with Dr. Rausch; changes to be made accordingly. Subjective Principal diagnosis: AFib with RVR, CHF Objective Vital Signs, Last 4 Hours Temp Pulse Resp BP Pulse Ox 07/12/18 09:42 16 110/87 92 07/12/18 08:50 94 07/12/18 07:31 97.6 F 84 18 110/87 98 Results 07/11/18 04:48 07/12/18 03:52 Lab Results 07/12/18 03:52 Sodium 140 Potassium 4.4 Chloride 98 Carbon Dioxide 36 H BUN 26 H Creatinine 0.76 Glucose 118 H Calcium 9.1 Magnesium 1.8 Total Bilirubin 0.8 AST 181 H ALT 489 H Alkaline Phosphatase 115 H - VTE Documentation of Mechanical Device: Graduated compression elastic hosiery Consult Discharge Plan - Plan Referrals: [facility],PCP [Primary Care Provider] - 07/23/18 10:30 am (Please fax over discharge info to the [facility] [phone]) Jeff Wheatley MD [Partnered Physician] - (SENT WEB REQUEST ON 07-10-18 @ 1529) Prescriptions: Rivaroxaban [Xarelto] 20 mg PO DAILY 30 Days #30 tablet
[2018-07-12] MEDS: *HR* Rivaroxaban 10 MG TABLET PO SCH (16:39)
[2018-07-13] MEDS: Penicillin G Potassium 4,000,000 UNIT in 0.9 % Sodium Chloride 100 ML IVPB SCH ×6 (01:36→22:08)
[2018-07-13] MEDS: Levalbuterol Neb 1.25 MG/3 ML IH SCH ×4 (03:38→21:57)
[2018-07-13 06:56] LABS: Basophils % 0.6 %; Eosinophils # 0.2 K/mcL (0.0-0.6); Eosinophils % 2.3 %; Hematocrit 38.3 % (37.5-50.1); Hemoglobin 11.3 g/dL (12.9-16.9); Immature Granulocytes % 2.4 % (0-4); Lymphocytes # 0.9 K/mcL (0.6-4.6); Lymphocytes % 13.8 %; Mean Corpuscular HGB Conc 29.5 g/dL (31.6-35.5); Mean Platelet Volume 11.4 fL (9.4-12.4); Monocytes # 0.6 K/mcL (0.0-1.3); Monocytes % 8.8 %; Neutrophils # 4.8 K/mcL (1.6-8.9); Nucleated Red Blood Cells 0.6 /100 WBC (0); Platelet Count 230 K/mcL (140-400); Red Blood Count 4.03 M/mcL (4.19-5.50); Red Cell Distribution Width 16.3 % (11.5-14.5); Segmented Neutrophils % 72.1 %
[2018-07-13] MEDS: Gabapentin 300 MG CAPSULE PO SCH ×3 (08:07→22:09)
[2018-07-13] MEDS: Furosemide 40 MG/4 ML VIAL IVP SCH ×2 (08:07→17:14)
[2018-07-13] MEDS: *HR* Digoxin 0.125 MG TABLET PO SCH (08:08)
[2018-07-13] MEDS: Metoprolol XL (24 HR) Succ 50 MG TAB.ER.24H PO SCH (08:08)
[2018-07-13] MEDS: Lactulose Oral Soln 20 GM/30 ML UDC PO SCH ×2 (08:10→22:09)
[2018-07-13] MEDS: Aspirin Enteric Coated 81 MG Tablet PO SCH (08:10)
[2018-07-13] MEDS: Insulin LISPRO 300 UNITS/3 ML VIAL SQ SCH ×3 (08:16→17:13)
[2018-07-13 09:26] LABS: Alanine Aminotransferase 349 Units/L (7-52); Albumin/Globulin Ratio 0.8 (1.1-2.2); Alkaline Phosphatase 116 Units/L (34-104); Aspartate Amino Transferase 81 Units/L (13-39); BUN/Creatinine Ratio 31 (6-26); Bilirubin,Total 0.9 mg/dL (0.3-1.0); Blood Urea Nitrogen 22 mg/dL (8-23); Carbon Dioxide 35 mEq/L (23-29); Chloride 97 mEq/L (98-107); Globulin 3.8 g/dL (2.4-3.5); Glucose 118 mg/dL (70-105); Osmolality,Calculated 294 (280-300); Sodium 140 mEq/L (136-145); Total Protein 6.8 g/dL (6.4-8.9); eGFR For Non-African Americans > 60 (> 60)
--- NOTE | 2018-07-13 10:15 | Internal Med Progress Note ---
Hospitalist Progress Note - Encounter Date of Encounter: 07/13/18 Time of Encounter: 10:11 - Subjective Interval History: Patient seen and examined at bedside. Pt with no acute overnight events. HR controlled. Patient sitting up in chair very alert and eager to go home. I explained that we still have him on IV diuretics and IV antibiotics and the patient understands he cannot leave today. Pain, palpitations, nausea, vomiting , abdominal pain. Patient states his overall swelling is improving. Patient states his breathing is very near baseline but still sob with exertion. - Exam Vitals: Temp Pulse Resp BP Pulse Ox 97.5 F L 101 20 119/76 95 07/13/18 07:02 07/13/18 08:48 07/13/18 08:48 07/13/18 07:02 07/13/18 08:48 Exam: Constitutional: No acute distress, Alert sitting in chair Psych: AAO x 3, appropirate, awake and alert HEENT: NCAT, EOMI Neck: supple Cardio: Irregularly irregular and tachycardic HR 80-90s, +s1s2, no murmurs Resp: rales in baseses Abd: soft, non tender/non distended, positive bowel sounds Extremities: 3+ pitting edema that is slightly improved with statis dermatitis of bilateral lower extremities; anasarca improving; no current cellulitis but a few pustules on RLE Neuro: no focal deficits appreciated - Assessment and Plan (1) Acute respiratory failure with hypoxia Current Visit: Yes Status: Acute Assessment and Plan: Pt requiring 2-5L NC to maintain adequate oxygenation -pulse ox adequate on supplemental oxygen -wean oxygen as tolerated -likely 2/2 decompensated systolic HF -continue diuresis -clinically improving. -tranisiton to oral diuretic tomorrow likely (2) Acute metabolic encephalopathy Current Visit: Yes Status: Acute Assessment and Plan: Pt developed alteration in mental status over several days -resolved -likely secondary to toxic metabolic encephalopathy due to sepsis, hypoxia, hyperammonemia and mild hypercapnia -sepsis resolved, continue lactulose, continue diuresis -will monitor (3) Atrial fibrillation with RVR Current Visit: Yes Status: Acute Assessment and Plan: -Patient developed new onset atrial fibrillation with rapid ventricular response with CHADSVASC of 5 -HR controlled -Patient received IV amiodarone load 07/07 -on xarelto for ac -continue toprolol xl 75mg daily; increase as bp allows if needed -continue digoxin -cardio following -stable (4) Heart failure Current Visit: Yes Status: Chronic Assessment and Plan: Acute on chronic decompensated heart failure with diastolic and systolic dysfunction -Echo verified that he has EF of 30%, globally reduced LV function with mild dilatation, and diastolic dysfunction with possibly elevated filling pressures -nearly compensated; still with volume overload -cardio following -on asa, bb -flor inhibitor and aldactone held 2/2 karishma -will add back lisinopril at 2.5 as renal function stable and bp is improved -iv diuresis will continue; renal function stable; consider change to orals tomorrow -now with negative fluid balance since admission of -6.7L -strict I/Os, daily weights -f/u cardio outpt; may need ischemic workup as outpt (5) Severe sepsis Current Visit: Yes Status: Acute Assessment and Plan: -presented with chills, hypotension, tachycardia, and leukocytosis > 20 -lactic acid 5 on admission, blood culture growing group b strep; repeat cx negative to date -suspected source was lower extremity cellulitis which appears resolved; now just with stasis dermatitis -ID following; changed doxy to IV penicillin; can change to keflex ad discharge ; continue through 07/20/18 -Sepsis resolved -monitor BP closely (6) KARISHMA (acute kidney injury) Current Visit: Yes Status: Acute Assessment and Plan: -suspect initial KARISHMA from ATN from sepsis vs. ADRIEL vs. ATN from hemodynamics -supsequent worsenig of KARISHMA after initial improvment likely 2/2 decreased effective circulating volume -Scr improved and stable at 0.72 from peak of 1.68 -continue diuresis; transition to orals tomorrow -am bmp (7) Cellulitis Current Visit: Yes Status: Acute Assessment and Plan: -improved/resolved -IV penicillin -ID following (8) Type 2 diabetes mellitus Current Visit: Yes Status: Chronic Assessment and Plan: -Hold Metformin, low dose SSI. -will monitor (9) COPD (chronic obstructive pulmonary disease) Current Visit: Yes Status: Chronic Assessment and Plan: not in exacerbation, on DUONEB abd Albuterol aerosols PRN. (10) Hypomagnesemia Current Visit: Yes Status: Acute Assessment and Plan: resolved (11) Transaminitis Current Visit: Yes Status: Acute Assessment and Plan: Patient developed transaminitis ; these were within normal limits previously -Unclear etiology, suspect 2/2 portal hypertension with heart failure vs amiodarone vs other; most likely from portal hypertension; improving with dieresis -AST/ALT starting to improve today -No abdominal pain -RUQ US showed hepatic statosis and hepatomegaly -GI Following with liver workup pending -alpha 1 antiprypsin elevated -will follow cmp in am -mild hyperammonemia resolved with lacutlose -will need outpt follow up with GI (12) DVT prophylaxis Current Visit: Yes Status: Acute Assessment and Plan: xarelto DVT Prophylaxis: xarelto - Summary of Assessment and Plan Summary of Assessment and Plan: Continue diuresis; transition to orals tomorrow HR controlled will need outpt f/u with cardiology and gastroenterology resume flor inhibitor - Time Spent with Patient Total time spent is greater than 50% in coordination of care (as documented) at patient's floor/unit and/or counseling patient: 25 - 35 minutes Plan of Care Discussed with: patient Internal Medicine: Result - Labs CBC & Chem 7: 07/13/18 05:39 07/13/18 05:39 Labs: Short CBC 07/13/18 Range/Units 05:39 WBC 6.6 (4.3-11.1) K/mcL Hgb 11.3 L (12.9-16.9) g/dL Hct 38.3 (37.5-50.1) % Plt Count 230 (140-400) K/mcL Neutrophils # 4.8 (1.6-8.9) K/mcL BMP 07/13/18 05:39 Sodium 140 Potassium 4.0 Chloride 97 L Carbon Dioxide 35 H BUN 22 Creatinine 0.72 Glucose 118 H Calcium 9.0 Liver Function 07/13/18 Range/Units 05:39 Total Bilirubin 0.9 (0.3-1.0) mg/dL AST 81 H (13-39) Units/L ALT 349 H (7-52) Units/L Alkaline Phosphatase 116 H (34-104) Units/L Albumin 3.0 L (3.5-5.7) g/dL - ABG Interpretation ABG results: ABG ABG pH 7.40 pH Units (7.32-7.45) 07/10/18 10:56 ABG pCO2 48 mmHg (35-45) H 07/10/18 10:56 ABG pO2 101 mmHg (85-104) 07/10/18 10:56 ABG O2 Saturation 98 % (95-98) 07/10/18 10:56 PT/INR, D-dimer PT 22.6 Seconds (9.4-12.1) H D 07/10/18 13:10 - VTE Documentation of Mechanical Device: Graduated compression elastic hosiery Consult Discharge Plan - Plan Referrals: [facility],PCP [Primary Care Provider] - 07/23/18 10:30 am (Please fax over discharge info to the [facility] [phone]) Jeff Wheatley MD [Partnered Physician] - (SENT WEB REQUEST ON 07-10-18 @ 8879) Prescriptions: Rivaroxaban [Xarelto] 20 mg PO DAILY 30 Days #30 tablet (4) Heart failure Qualifiers: Heart failure type: combined systolic and diastolic Heart failure chronicity : chronic Qualified Code(s): I50.42 - Chronic combined systolic (congestive) and diastolic (congestive) heart failure (7) Cellulitis Qualifiers: Site of cellulitis: extremity Site of cellulitis of extremity: lower extremity Laterality: right Qualified Code(s): L03.115 - Cellulitis of right lower limb (8) Type 2 diabetes mellitus Qualifiers: Diabetes mellitus moth exterminator insulin use: without moth exterminator use Diabetes mellitus complication status: without complication Qualified Code(s): E11.9 - Type 2 diabetes mellitus without complications (9) COPD (chronic obstructive pulmonary disease) Qualifiers: COPD type: emphysema Emphysema type: panlobular Qualified Code(s): J43.1 - Panlobular emphysema
[2018-07-13] MEDS: *HR* Rivaroxaban 10 MG TABLET PO SCH (17:15)
[2018-07-13] MEDS: traMADol 50 MG TABLET PO PRN (23:37)
[2018-07-14] MEDS: Penicillin G Potassium 4,000,000 UNIT in 0.9 % Sodium Chloride 100 ML IVPB SCH ×6 (01:15→20:37)
[2018-07-14] MEDS ORDERED: *HR* Metoprolol 5 MG/5 ML VIAL IVP PRN (02:04)
[2018-07-14] MEDS: Levalbuterol Neb 1.25 MG/3 ML IH SCH ×4 (04:47→21:34)
[2018-07-14 06:11] LABS: Basophils % 0.5 %; Eosinophils # 0.1 K/mcL (0.0-0.6); Eosinophils % 1.5 %; Hemoglobin 11.9 g/dL (12.9-16.9); Immature Granulocytes % 1.9 % (0-4); Lymphocytes % 12.9 %; Mean Corpuscular HGB Conc 29.8 g/dL (31.6-35.5); Mean Corpuscular Hemoglobin 28.1 pg (28.0-33.3); Mean Corpuscular Volume 94.6 fL (83.0-100.0); Monocytes # 0.6 K/mcL (0.0-1.3); Monocytes % 7.4 %; Neutrophils # 5.7 K/mcL (1.6-8.9); Nucleated Red Blood Cells 0.3 /100 WBC (0); Platelet Count 239 K/mcL (140-400); Red Blood Count 4.23 M/mcL (4.19-5.50); Red Cell Distribution Width 16.1 % (11.5-14.5); Segmented Neutrophils % 75.8 %
[2018-07-14 06:25] LABS: Alanine Aminotransferase 266 Units/L (7-52); Albumin 3.2 g/dL (3.5-5.7); Albumin/Globulin Ratio 0.8 (1.1-2.2); Alkaline Phosphatase 117 Units/L (34-104); Aspartate Amino Transferase 48 Units/L (13-39); BUN/Creatinine Ratio 23 (6-26); Bilirubin,Total 0.8 mg/dL (0.3-1.0); Blood Urea Nitrogen 17 mg/dL (8-23); Calcium 8.7 mg/dL (8.6-10.3); Carbon Dioxide 35 mEq/L (23-29); Chloride 96 mEq/L (98-107); Glucose 132 mg/dL (70-105); Osmolality,Calculated 289 (280-300); Sodium 138 mEq/L (136-145); Total Protein 7.2 g/dL (6.4-8.9); eGFR For Non-African Americans > 60 (> 60)
[2018-07-14] MEDS: Insulin LISPRO 300 UNITS/3 ML VIAL SQ SCH ×3 (08:47→17:58)
[2018-07-14] MEDS: Metoprolol XL (24 HR) Succ 50 MG TAB.ER.24H PO SCH (08:48)
[2018-07-14] MEDS: *HR* Digoxin 0.125 MG TABLET PO SCH (08:48)
[2018-07-14] MEDS: Aspirin Enteric Coated 81 MG Tablet PO SCH (08:48)
[2018-07-14] MEDS: Furosemide 40 MG/4 ML VIAL IVP SCH ×2 (08:48→17:58)
[2018-07-14] MEDS: Gabapentin 300 MG CAPSULE PO SCH ×3 (08:48→20:34)
[2018-07-14] MEDS: Lactulose Oral Soln 20 GM/30 ML UDC PO SCH ×2 (08:51→20:27)
--- NOTE | 2018-07-14 11:57 | Internal Med Progress Note ---
Hospitalist Progress Note - Encounter Date of Encounter: 07/14/18 Time of Encounter: 11:54 - Subjective Interval History: Patient seen and examined at bedside. Pt with no acute overnight events. HR somewhat controlled but with occasional RVR. BP on low normal side. Given 5mg IV lopressor overnight. Patient denies any chest pain, abdominal pain, nausea, vomiting, diarrhea. Patient states his breathing is very near baseline. Still continues to get very dyspneic with any exertion and still has orthopnea but he sates that is chronic. Pt very eager to go home. - Exam Vitals: Temp Pulse Resp BP Pulse Ox 97.6 F 89 18 105/85 92 07/14/18 11:32 07/14/18 11:32 07/14/18 11:32 07/14/18 11:32 07/14/18 11:32 Exam: Constitutional: No acute distress, Alert sitting in chair Psych: AAO x 3, appropirate, awake and alert HEENT: NCAT Neck: supple Cardio: Irregularly irregular and tachycardic HR 80-110s, +s1s2, no murmurs Resp: rales in bases Abd: soft, non tender/non distended, positive bowel sounds Extremities: 3+ pitting edema that is slightly improved with statis dermatitis of bilateral lower extremities; anasarca improving; no current cellulitis but a few pustules on RLE remain unchanged Neuro: no focal deficits appreciated - Assessment and Plan (1) Acute respiratory failure with hypoxia Current Visit: Yes Status: Acute Assessment and Plan: Pt requiring 2-5L NC to maintain adequate oxygenation -pulse ox adequate on supplemental oxygen (currently at 3lpm) -wean oxygen as tolerated -likely 2/2 decompensated systolic HF -continue diuresis as HF still decompensated -appears more volume overloaded today (2) Acute metabolic encephalopathy Current Visit: Yes Status: Acute Assessment and Plan: Pt developed alteration in mental status over several days -resolved -likely secondary to toxic metabolic encephalopathy due to sepsis, hypoxia, hyperammonemia and mild hypercapnia -sepsis resolved, continue lactulose, continue diuresis -will monitor (3) Atrial fibrillation with RVR Current Visit: Yes Status: Acute Assessment and Plan: -Patient developed new onset atrial fibrillation with rapid ventricular response with CHADSVASC of 5 -HR somewhat controlled but with occasional RVR; required IV lopressor overnight -Patient received IV amiodarone load 07/07 -on xarelto for ac -continue toprolol xl will increase to 100mg due to RVR -continue digoxin (4) Heart failure Current Visit: Yes Status: Chronic Assessment and Plan: Acute on chronic decompensated heart failure with diastolic and systolic dysfunction -Echo verified that he has EF of 30%, globally reduced LV function with mild dilatation, and diastolic dysfunction with possibly elevated filling pressures -compensation continues to improve but still with WILSON, orthopnea, and rales on exam; still overloaded and seems slightly worsened from yesterday -encouraged compliance with fluid restriction; has been drinking alot of water -cardio following -on asa, bb -flor inhibitor and aldactone held 2/2 karishma -lisinopril added back at 2.5 as renal function stable and bp is improved -iv diuresis will continue; renal function stable; will continue with BID IV diuresis -now with negative fluid balance since admission of -6.7L yesterday; down to - 5.4 liters since admission today; unclear why -strict I/Os, daily weights -f/u cardio outpt; may need ischemic workup as outpt (pt states he has no strategic partnership specialist) (5) Severe sepsis Current Visit: Yes Status: Acute Assessment and Plan: -presented with chills, hypotension, tachycardia, and leukocytosis > 20 -lactic acid 5 on admission, blood culture growing group b strep; repeat cx negative to date -suspected source was lower extremity cellulitis which appears resolved; now just with stasis dermatitis -ID following; changed doxy to IV penicillin; can change to keflex ad discharge ; continue through 07/20/18 -Sepsis resolved -monitor BP closely (6) KARISHMA (acute kidney injury) Current Visit: Yes Status: Acute Assessment and Plan: -suspect initial KARISHMA from ATN from sepsis vs. ADRIEL vs. ATN from hemodynamics -supsequent worsenig of KARISHMA after initial improvment likely 2/2 decreased effective circulating volume -Scr improved and stable at 0.75 from peak of 1.68 -continue diuresis -am bmp (7) Cellulitis Current Visit: Yes Status: Acute Assessment and Plan: -improved/resolved -IV penicillin -ID following (8) Type 2 diabetes mellitus Current Visit: Yes Status: Chronic Assessment and Plan: -Hold Metformin, low dose SSI. -will monitor (9) COPD (chronic obstructive pulmonary disease) Current Visit: Yes Status: Chronic Assessment and Plan: not in exacerbation, on DUONEB abd Albuterol aerosols PRN. (10) Hypomagnesemia Current Visit: Yes Status: Acute Assessment and Plan: resolved (11) Transaminitis Current Visit: Yes Status: Acute Assessment and Plan: Patient developed transaminitis ; these were within normal limits previously -Unclear etiology, suspect 2/2 portal hypertension with heart failure vs amiodarone vs other; most likely from portal hypertension; improving with dieresis -AST/ALT continuing to improve -No abdominal pain -RUQ US showed hepatic statosis and hepatomegaly -GI Following with liver workup pending -alpha 1 antiprypsin elevated -will follow cmp in am -mild hyperammonemia resolved with lacutlose -will need outpt follow up with GI (12) DVT prophylaxis Current Visit: Yes Status: Acute Assessment and Plan: xarelto DVT Prophylaxis: xarelto - Summary of Assessment and Plan Summary of Assessment and Plan: Continue diuresis; seems more volume overloaded today HR less controlled required IV lopressor overnight will need outpt f/u with cardiology and gastroenterology - Time Spent with Patient Total time spent is greater than 50% in coordination of care (as documented) at patient's floor/unit and/or counseling patient: 25 - 35 minutes Plan of Care Discussed with: patient Internal Medicine: Result - Labs CBC & Chem 7: 07/14/18 05:37 07/14/18 05:37 Labs: Short CBC 07/14/18 Range/Units 05:37 WBC 7.5 (4.3-11.1) K/mcL Hgb 11.9 L (12.9-16.9) g/dL Hct 40.0 (37.5-50.1) % Plt Count 239 (140-400) K/mcL Neutrophils # 5.7 (1.6-8.9) K/mcL BMP 07/14/18 05:37 Sodium 138 Potassium 4.0 Chloride 96 L Carbon Dioxide 35 H BUN 17 Creatinine 0.75 Glucose 132 H Calcium 8.7 Liver Function 07/14/18 Range/Units 05:37 Total Bilirubin 0.8 (0.3-1.0) mg/dL AST 48 H (13-39) Units/L ALT 266 H (7-52) Units/L Alkaline Phosphatase 117 H (34-104) Units/L Albumin 3.2 L (3.5-5.7) g/dL - ABG Interpretation ABG results: ABG ABG pH 7.40 pH Units (7.32-7.45) 07/10/18 10:56 ABG pCO2 48 mmHg (35-45) H 07/10/18 10:56 ABG pO2 101 mmHg (85-104) 07/10/18 10:56 ABG O2 Saturation 98 % (95-98) 07/10/18 10:56 PT/INR, D-dimer PT 22.6 Seconds (9.4-12.1) H D 07/10/18 13:10 - VTE Documentation of Mechanical Device: Intermittent pneumatic compression device Consult Discharge Plan - Plan Referrals: SHARLA,PCP [Primary Care Provider] - 07/23/18 10:30 am (Please fax over discharge info to the [place] [phone]) Jeff Wheatley MD [Partnered Physician] - (SENT WEB REQUEST ON 07-10-18 @ [phone]) Prescriptions: Rivaroxaban [Xarelto] 20 mg PO DAILY 30 Days #30 tablet (4) Heart failure Qualifiers: Heart failure type: combined systolic and diastolic Heart failure chronicity : chronic Qualified Code(s): I50.42 - Chronic combined systolic (congestive) and diastolic (congestive) heart failure (7) Cellulitis Qualifiers: Site of cellulitis: extremity Site of cellulitis of extremity: lower extremity Laterality: right Qualified Code(s): L03.115 - Cellulitis of right lower limb (8) Type 2 diabetes mellitus Qualifiers: Diabetes mellitus jail insulin use: without jail use Diabetes mellitus complication status: without complication Qualified Code(s): E11.9 - Type 2 diabetes mellitus without complications (9) COPD (chronic obstructive pulmonary disease) Qualifiers: COPD type: emphysema Emphysema type: panlobular Qualified Code(s): J43.1 - Panlobular emphysema
--- NOTE | 2018-07-14 12:54 | Electrocardiograph Report ---
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
[2018-07-14] MEDS: *HR* Rivaroxaban 10 MG TABLET PO SCH (17:57)
[2018-07-15] MEDS: Penicillin G Potassium 4,000,000 UNIT in 0.9 % Sodium Chloride 100 ML IVPB SCH ×6 (00:21→20:23)
[2018-07-15] MEDS: Levalbuterol Neb 1.25 MG/3 ML IH SCH ×4 (04:15→22:03)
[2018-07-15 04:28] LABS: Basophils % 0.4 %; Eosinophils # 0.1 K/mcL (0.0-0.6); Hematocrit 35.8 % (37.5-50.1); Hemoglobin 10.6 g/dL (12.9-16.9); Lymphocytes # 0.7 K/mcL (0.6-4.6); Lymphocytes % 8.9 %; Mean Corpuscular HGB Conc 29.6 g/dL (31.6-35.5); Mean Corpuscular Hemoglobin 27.7 pg (28.0-33.3); Mean Corpuscular Volume 93.5 fL (83.0-100.0); Mean Platelet Volume 10.7 fL (9.4-12.4); Monocytes # 0.5 K/mcL (0.0-1.3); Monocytes % 6.1 %; Neutrophils # 6.1 K/mcL (1.6-8.9); Platelet Count 200 K/mcL (140-400); Red Blood Count 3.83 M/mcL (4.19-5.50); Red Cell Distribution Width 16.2 % (11.5-14.5); Segmented Neutrophils % 82.6 %
[2018-07-15 04:45] LABS: Alanine Aminotransferase 181 Units/L (7-52); Albumin/Globulin Ratio 0.8 (1.1-2.2); Alkaline Phosphatase 99 Units/L (34-104); Aspartate Amino Transferase 31 Units/L (13-39); BUN/Creatinine Ratio 25 (6-26); Bilirubin,Total 0.9 mg/dL (0.3-1.0); Blood Urea Nitrogen 18 mg/dL (8-23); Calcium 8.4 mg/dL (8.6-10.3); Carbon Dioxide 32 mEq/L (23-29); Chloride 96 mEq/L (98-107); Globulin 3.6 g/dL (2.4-3.5); Glucose 172 mg/dL (70-105); Magnesium 1.7 mg/dL (1.6-2.6); Osmolality,Calculated 286 (280-300); Potassium 4.2 mEq/L (3.5-5.1); Sodium 135 mEq/L (136-145); Total Protein 6.6 g/dL (6.4-8.9); eGFR For Non-African Americans > 60 (> 60)
[2018-07-15] MEDS: Lactulose Oral Soln 20 GM/30 ML UDC PO SCH ×2 (07:57→20:25)
[2018-07-15] MEDS: Insulin LISPRO 300 UNITS/3 ML VIAL SQ SCH ×3 (07:57→17:09)
[2018-07-15] MEDS: Gabapentin 300 MG CAPSULE PO SCH ×3 (07:58→20:24)
[2018-07-15] MEDS: *HR* Digoxin 0.125 MG TABLET PO SCH (07:58)
[2018-07-15] MEDS: Aspirin Enteric Coated 81 MG Tablet PO SCH (07:58)
[2018-07-15] MEDS: Furosemide 40 MG/4 ML VIAL IVP SCH ×2 (07:58→20:24)
[2018-07-15] MEDS ORDERED: Metoprolol XL (24 HR) Succ 50 MG TAB.ER.24H PO SCH (09:00)
[2018-07-15 11:33] LABS: ANA IgG by ELISA NONE DETECTED (None Detected); F-Actin (sm muscle) Ab IgG 15 Units (0-19)
[2018-07-15 14:14] LABS: Myeloperoxidase Ab 0 AU/mL (0-19); Serine Protease-3 Antibody 1 AU/mL (0-19)
--- NOTE | 2018-07-15 14:55 | Internal Med Progress Note ---
Hospitalist Progress Note - Encounter Date of Encounter: 07/15/18 Time of Encounter: 14:50 - Subjective Interval History: Patient seen and evaluated at bedside, reports doing well, denies shortness of breath, chest pain, lightheadedness, fever. No overnight event. - Exam Vitals: Temp Pulse Resp BP Pulse Ox 98.6 F 91 18 102/68 93 07/15/18 11:45 07/15/18 11:45 07/15/18 11:45 07/15/18 11:45 07/15/18 11:45 Exam: General: Alert and oriented 3. No acute distress. Skin: Chronic skin changes in the lower extremities bilaterally Cardiovascular: Irregularly irregular, normal S1 & S2, no rubs, murmurs or gallops. JVD unable to assess due to short neck. Lungs: Clear breath sounds bilaterally, no wheezes or crackles. Abdomen: Obese, Soft, non-tender, no rigidity. Extremities: 2+ edema in the lower extremities, right lower extremity with erythematous changes, no warm, or tenderness. Right lower extremity slighly symmetrically bigger than the left Neurological:Normal cognition and motor skills. Rest of the physical exam is non contributory - Assessment and Plan (1) Bacteremia due to group B Streptococcus Current Visit: Yes Status: Acute Assessment and Plan: Blood pressure in the low 100s. Most likely due to diuresis. No fever in the past 48/-72 hours Plan: - We will discuss with ID de-escalating to Keflex. (2) Chronic systolic CHF (congestive heart failure) Current Visit: Yes Status: Acute Assessment and Plan: No crackles on auscultation bilaterally. 3+ edema in the lower extremities. Overall -4 L. Plan: - Patient Lasix 80 mg twice a day. - We will change Lasix to 40 mg twice a day due to blood pressure in the low 100s. - will keep patient in the hospital for diuresis for 24 hours. - Discharge planning tomorrow morning. (3) Atrial fibrillation Current Visit: Yes Status: Acute Assessment and Plan: Rate control. High [id number] score. Plan: - Continue digoxin and metoprolol for rate control - Continue Xarelto for anticoagulation (4) COPD (chronic obstructive pulmonary disease) Current Visit: Yes Status: Chronic Assessment and Plan: No inspiratory or expiratory wheezing. no productive cough. Plan: - On levalbuterol Nebs (5) Type 2 diabetes mellitus Current Visit: Yes Status: Chronic Assessment and Plan: ON metformin as outpatient Plan: - On liprol medium/high dose Sliding scale - Will start levemir 5units HS (6) Transaminitis Current Visit: Yes Status: Resolved (7) Chronic hypoxemic respiratory failure Current Visit: Yes Status: Acute Assessment and Plan: On 2 litter of Home O2. Plan: - Continue with O2 by nasal cannula - Titrated for O2 sat more than 92%. (8) Venous stasis of both lower extremities Current Visit: Yes Status: Acute Assessment and Plan: Venous Doppler negative for DVT. Mild erythema bilaterally, No tenderness or warmth Plan: - To complete antibiotic coverage with penicillin as per IDs recommendation. DVT Prophylaxis: High risk of DVT. Plan: - Patient on full dose into coagulation due to A. fib - Summary of Assessment and Plan Summary of Assessment and Plan: Patient is to remain in the hospital for IV diuresis. And blood pressure monitoring. Potential discharge tomorrow morning - Time Spent with Patient Total time spent is greater than 50% in coordination of care (as documented) at patient's floor/unit and/or counseling patient: Greater than 35 minutes Plan of Care Discussed with: patient Internal Medicine: Result - Labs CBC & Chem 7: 07/15/18 04:06 07/15/18 04:06 Labs: Short CBC 07/15/18 Range/Units 04:06 WBC 7.3 (4.3-11.1) K/mcL Hgb 10.6 L (12.9-16.9) g/dL Hct 35.8 L (37.5-50.1) % Plt Count 200 (140-400) K/mcL Neutrophils # 6.1 (1.6-8.9) K/mcL BMP 07/15/18 04:06 Sodium 135 L Potassium 4.2 Chloride 96 L Carbon Dioxide 32 H BUN 18 Creatinine 0.71 Glucose 172 H Calcium 8.4 L Liver Function 07/15/18 Range/Units 04:06 Total Bilirubin 0.9 (0.3-1.0) mg/dL AST 31 (13-39) Units/L ALT 181 H (7-52) Units/L Alkaline Phosphatase 99 (34-104) Units/L Albumin 3.0 L (3.5-5.7) g/dL - ABG Interpretation ABG results: ABG ABG pH 7.40 pH Units (7.32-7.45) 07/10/18 10:56 ABG pCO2 48 mmHg (35-45) H 07/10/18 10:56 ABG pO2 101 mmHg (85-104) 07/10/18 10:56 ABG O2 Saturation 98 % (95-98) 07/10/18 10:56 PT/INR, D-dimer PT 22.6 Seconds (9.4-12.1) H D 07/10/18 13:10 - VTE Documentation of Mechanical Device: Graduated compression elastic hosiery Consult Discharge Plan - Plan Referrals: [place],PCP [Primary Care Provider] - 07/23/18 10:30 am (Please fax over discharge info to the [place] [phone]) Jeff Wheatley MD [Partnered Physician] - (SENT WEB REQUEST ON 07-10-18 @ 1151) Prescriptions: Rivaroxaban [Xarelto] 20 mg PO DAILY 30 Days #30 tablet (3) Atrial fibrillation Qualifiers: Atrial fibrillation type: chronic Qualified Code(s): I48.2 - Chronic atrial fibrillation (4) COPD (chronic obstructive pulmonary disease) Qualifiers: COPD type: emphysema Emphysema type: panlobular Qualified Code(s): J43.1 - Panlobular emphysema (5) Type 2 diabetes mellitus Qualifiers: Diabetes mellitus long-term insulin use: without intermodal dispatcher use Diabetes mellitus complication status: without complication Qualified Code(s): E11.9 - Type 2 diabetes mellitus without complications
[2018-07-15] MEDS: *HR* Rivaroxaban 10 MG TABLET PO SCH (16:06)
--- NOTE | 2018-07-15 18:17 | Infectious Disease Progress No ---
Date of Encounter: 07/15/18 Time of Encounter: 10:20 - Assessment and Plan (1) Severe sepsis Current Visit: Yes Status: Acute The patient had two SIRS criteria plus lactic acidosis, KARISHMA, and elevated LFTs. Likely secondary to GBS bacteremia. Improved. Blood cultures drawn 07/05/18 were positive 2/2 sets for GBS. Repeat blood cultures drawn here 07/05/18 are negative x 2 sets. (2) Bacteremia due to group B Streptococcus Current Visit: Yes Status: Acute Causative organism: GBS. Source: unclear, possibly pneumonia vs. UTI vs. other. Blood cultures drawn 07/05/18 at OSH were positive 2/2 sets for GBS. Repeat blood cultures drawn here 07/05/18 were negative x 2 sets. Uncomplicated. Continue PCN G 4 million units IV Q4H. Duration of treatment depends on the clinical picture, but likely a total of 14 days from the first set of negative blood cultures. Can switch to PO Keflex 500mg PO QID to complete the course of treatment. Treat through 07/18/18. Monitor renal function and dose-adjust antibiotics. (3) Cellulitis Current Visit: Yes Status: Acute Location: RLE per report. Causative organism: Unclear. Etiology: likely secondary to venous stasis. Clinically, no evidence of infection during my exam, but the patient has been on IV antibiotics for about 11 days now. Continue antibiotics as above. Qualifiers: Site of cellulitis: extremity Site of cellulitis of extremity: lower extremity Laterality: right Qualified Code(s): L03.115 - Cellulitis of right lower limb (4) KARISHMA (acute kidney injury) Current Visit: Yes Status: Resolved Likely secondary to sepsis. Resolved. (5) Transaminitis Current Visit: Yes Status: Resolved Etiology unclear: sepsis vs. other. Repeat LFTs normal. Resolved. (6) Atrial fibrillation Current Visit: Yes Status: Acute Cardiology consulted and following. Qualifiers: Atrial fibrillation type: chronic Qualified Code(s): I48.2 - Chronic atrial fibrillation (7) COPD (chronic obstructive pulmonary disease) Current Visit: Yes Status: Chronic Qualifiers: COPD type: emphysema Emphysema type: panlobular Qualified Code(s): J43.1 - Panlobular emphysema (8) Morbid obesity with BMI of 50.0-59.9, adult Current Visit: Yes Status: Acute (9) Type 2 diabetes mellitus Current Visit: Yes Status: Chronic Recommend aggressive glucose monitoring and control to promote wound healing and prevent re-infection. Management per the primary team. 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 No acute events noted overnight. Patient states that overall he feels well and wants to go home. Complains of chronic neuropathy pain to the BLE, but otherwise denies acute complaints. Denies fevers, chills, or rigors. Denies chest pain or cough. Reports chronic TITA that is at baseline. Denies nausea, vomiting, or diarrhea. Denies abdominal pain, urinary complaints, or appetite changes. Denies oral thrush or skin lesions. Infect Dis PN-Objective Data - Labs CBC & Chem 7: 07/15/18 04:06 07/15/18 04:06 Labs: Laboratory Results - last 24 hr 07/10/18 07/14/18 07/15/18 13:10 16:16 04:06 WBC 7.3 RBC 3.83 L Hgb 10.6 L Hct 35.8 L MCV 93.5 MCH 27.7 L MCHC 29.6 L RDW 16.2 H Plt Count 200 MPV 10.7 Immature Gran % 1.0 Seg Neutrophils % 82.6 Lymphocytes % 8.9 Monocytes % 6.1 Eosinophils % 1.0 Basophils % 0.4 Neutrophils # 6.1 Lymphocytes # 0.7 Monocytes # 0.5 Eosinophils # 0.1 Basophils # 0.0 Sodium Potassium Chloride Carbon Dioxide BUN Creatinine Est GFR ( Amer) Est GFR (Non-Af Amer) BUN/Creatinine Ratio Glucose POC Glucose 164 H Calculated Osmolality Calcium Phosphorus Magnesium Total Bilirubin AST ALT Alkaline Phosphatase Serum Total Protein Albumin Globulin Albumin/Globulin Ratio YASIR Screen NONE DETECTED Myeloperoxidase Ab 0 Mitochondria M2 IgG Ab 4.7 F-Actin IgG Antibody 15 Serine Protease 3 Ab 1 07/15/18 07/15/18 04:06 16:42 WBC RBC Hgb Hct MCV MCH MCHC RDW Plt Count MPV Immature Gran % Seg Neutrophils % Lymphocytes % Monocytes % Eosinophils % Basophils % Neutrophils # Lymphocytes # Monocytes # Eosinophils # Basophils # Sodium 135 L Potassium 4.2 Chloride 96 L Carbon Dioxide 32 H BUN 18 Creatinine 0.71 Est GFR ( Amer) > 60 Est GFR (Non-Af Amer) > 60 BUN/Creatinine Ratio 25 Glucose 172 H POC Glucose 130 H Calculated Osmolality 286 Calcium 8.4 L Phosphorus 3.0 Magnesium 1.7 Total Bilirubin 0.9 AST 31 ALT 181 H Alkaline Phosphatase 99 Serum Total Protein 6.6 Albumin 3.0 L Globulin 3.6 H Albumin/Globulin Ratio 0.8 L YASIR Screen Myeloperoxidase Ab Mitochondria M2 IgG Ab F-Actin IgG Antibody Serine Protease 3 Ab Cultures: Cultures 07/05/18 22:04 Blood Culture - Final Peripheral Venipuncture No growth. Final report. 07/05/18 22:04 Blood Culture - Final Peripheral Venipuncture No growth. Final report. Serology 07/10/18 Range/Units 13:10 Hepatitis A IgM Ab Nonreactive (Nonreactive) Hep Bs Antigen Nonreactive (Nonreactive) Hep B Core IgM Ab Nonreactive (Nonreactive) Hepatitis C Ab Screen Nonreactive (Nonreactive) Exam - Constitutional Vitals: Temp Pulse Resp BP Pulse Ox 98.4 F 88 18 94/67 98 07/15/18 16:40 07/15/18 16:40 07/15/18 16:40 07/15/18 16:40 07/15/18 16:40 General appearance: cooperative, morbidly obese, no acute distress - Head Head exam: Present: atraumatic, normal inspection, normocephalic - Eye Eye exam: Present: EOMI, normal appearance, PERRL Pupils: Present: normal accommodation - ENT ENT exam: Present: mucous membranes moist - Neck Neck exam: Present: normal inspection - Respiratory Respiratory exam: Present: CTAB. Absent: rales, respiratory distress, rhonchi, wheezes - Cardiovascular Cardiovascular exam: Present: irregular rhythm, +S1, +S2. Absent: tachycardia - GI/Abdominal GI/Abdominal exam: Present: distended (obese), normal bowel sounds, soft. Absent: tenderness - Extremities Exam Extremities exam: Present: pedal edema (Trace BLE). Absent: joint swelling, normal inspection (Venous stasis dermatitis noted to the BLE), tenderness - Neurological Exam Neurological exam: Present: alert, oriented X3, no focal deficits - Psychiatric Psychiatric exam: Present: normal affect, normal mood - Skin Skin exam: Present: dry, intact, normal color, warm - VTE Documentation of Mechanical Device: Graduated compression elastic hosiery Consult Discharge Plan - Plan Referrals: [place],PCP [Primary Care Provider] - 07/23/18 10:30 am (Please fax over discharge info to the [place] [phone]) Jeff Wheatley MD [Partnered Physician] - (SENT WEB REQUEST ON 07-10-18 @ 1277) Prescriptions: Rivaroxaban [Xarelto] 20 mg PO DAILY 30 Days #30 tablet - Attending Attestation I examined this patient and my medical decision-making was reviewed with the Resident Physician. I agree with the documented findings, disposition and treatment plan as described except to the extent set forth below.
[2018-07-15] MEDS ORDERED: Furosemide 40 MG/4 ML VIAL ONE (20:09)
[2018-07-15] MEDS ORDERED: Insulin DETEMIR 100 UNIT/ML X5UNITS SQ SCH (21:00)
[2018-07-16] MEDS: Penicillin G Potassium 4,000,000 UNIT in 0.9 % Sodium Chloride 100 ML IVPB SCH ×2 (00:41→04:58)
[2018-07-16] MEDS: Levalbuterol Neb 1.25 MG/3 ML IH SCH ×2 (03:34→09:09)
[2018-07-16 06:11] LABS: BUN/Creatinine Ratio 27 (6-26); Blood Urea Nitrogen 19 mg/dL (8-23); Calcium 8.6 mg/dL (8.6-10.3); Carbon Dioxide 35 mEq/L (23-29); Chloride 97 mEq/L (98-107); Glucose 116 mg/dL (70-105); Magnesium 1.8 mg/dL (1.6-2.6); Osmolality,Calculated 289 (280-300); Potassium 4.1 mEq/L (3.5-5.1); Sodium 138 mEq/L (136-145); eGFR For Non-African Americans > 60 (> 60)
[2018-07-16] MEDS: Insulin LISPRO 300 UNITS/3 ML VIAL SQ SCH (07:48)
[2018-07-16] MEDS ORDERED: Metoprolol XL (24 HR) Succ 50 MG TAB.ER.24H PO SCH (07:50)
[2018-07-16] MEDS: Lactulose Oral Soln 20 GM/30 ML UDC PO SCH (07:56)
[2018-07-16] MEDS: Gabapentin 300 MG CAPSULE PO SCH (07:56)
[2018-07-16] MEDS: Aspirin Enteric Coated 81 MG Tablet PO SCH (07:56)
[2018-07-16] MEDS: *HR* Digoxin 0.125 MG TABLET PO SCH (07:56)
[2018-07-16] MEDS: Furosemide 40 MG/4 ML VIAL IVP SCH (07:57)
[2018-07-16 11:03] VITALS: BP 102/64
--- NOTE | 2018-07-16 11:05 | Discharge Summary ---
- NOTES TO OUTPATIENT PROVIDER Notes to Outpatient Provider: Follow-up Primary care doctor for possible antihypertensive medication adjustment. BP has been running in the low 100s. Date of Encounter: 07/16/18 Time of Encounter: 11:03 - Discharge Diagnosis (1) Bacteremia due to group B Streptococcus Priority: Primary Status: Resolved Assessment and Plan: Repeat blood cultures negative 2 bottles. No signs of infections. Afebrile. (2) Chronic systolic CHF (congestive heart failure) Priority: Secondary Status: Chronic (3) Atrial fibrillation Priority: Secondary Status: Chronic Qualifiers: Atrial fibrillation type: chronic Qualified Code(s): I48.2 - Chronic atrial fibrillation (4) COPD (chronic obstructive pulmonary disease) Priority: Secondary Status: Chronic Qualifiers: COPD type: emphysema Emphysema type: panlobular Qualified Code(s): J43.1 - Panlobular emphysema (5) Type 2 diabetes mellitus Priority: Secondary Status: Chronic Qualifiers: Diabetes mellitus snf insulin use: without snf use Diabetes mellitus complication status: without complication Qualified Code(s): E11.9 - Type 2 diabetes mellitus without complications (6) Transaminitis Priority: Secondary Status: Resolved (7) Chronic hypoxemic respiratory failure Priority: Secondary Status: Chronic Assessment and Plan: On 2 L home oxygen (8) Venous stasis of both lower extremities Priority: Secondary Status: Chronic (9) Cellulitis Priority: Secondary Status: Chronic Assessment and Plan: Edema, erythema has significantly improved. No tenderness to palpation in the right lower extremity. Qualifiers: Site of cellulitis: extremity Site of cellulitis of extremity: lower extremity Laterality: right Qualified Code(s): L03.115 - Cellulitis of right lower limb Hospital course: Mr. Galaviz is a 68 year old male past medical history significant for CHF, diabetes, hyperlipidemia, hypertension, coronary artery disease. Patient was transferred to the hospital from [facility], due to the concern of possible sepsis. Patient workup for sepsis, found to have cellulitis of the right lower extremity, and blood cultures grew group B streptococcus. Patient treated with IV fluids and IV antibiotics, ID media sales consultant recommended the patient to complete 14 days of antibiotics. Patient has been receiving penicillin G, ID agreed on changing the patient to Keflex 500 mg twice a day for 4 more days. Patient with a history of A. fib. Had an episode of A. fib with RVR, likely decompensated due to the sepsis. Rate controlled with a beta katy and digitoxin. Patient afebrile for the past 78 hours, blood pressure stable as well as the rest of the vital signs. Patient is clinically stable to be discharged home on by mouth antibiotics. Discharge discussed with: patient, nurse - Time Spent with Patient Total time spent providing and/or coordinating discharge services: Greater than 30 minutes - Discharge Medications Prescriptions: Cephalexin [Keflex] 500 mg PO BID 4 Days #10 capsule Furosemide [Lasix] 80 mg PO DAILY 30 Days #30 tablet Rivaroxaban [Xarelto] 20 mg PO DAILY 30 Days #30 tablet Home Medications: Aspirin [Lo-Dose Aspirin EC] 81 mg PO DAILY 07/05/18 [History] Atorvastatin Calcium [Lipitor] 80 mg PO HS 07/05/18 [History] Gabapentin [Neurontin] 600 mg PO TID 07/05/18 [History] Lisinopril [Zestril] 10 mg PO DAILY 07/05/18 [History] Metformin HCl [Fortamet] 1,000 mg PO BID 07/05/18 [History] Isosorbide MONOnitrate (24 HR) [Imdur] 30 mg PO DAILY 07/06/18 [History] Metoprolol Succinate [Toprol Xl] 25 mg PO DAILY 07/06/18 [History] Rivaroxaban [Xarelto] 20 mg PO DAILY 30 Days #30 tablet 07/08/18 [Rx] Cephalexin [Keflex] 500 mg PO BID 4 Days #10 capsule 07/16/18 [Rx] Digoxin [Lanoxin] 0.125 mg PO DAILY tablet 07/16/18 [Rx] Furosemide [Lasix] 80 mg PO DAILY 30 Days #30 tablet 07/16/18 [Rx] Allergies/Adverse Reactions: 3 Allergy/AdvReac Type Severity Reaction Status Date / Time No Known Allergies Allergy Verified 07/05/18 13:53 Date of admission: 07/05/18 21:40 [facility] Consults: 07/07/18 10:52 Consult to Physical Therapy [CONS] Routine Comment: Evaluate, develop and implement POC Reason for Consult: deconditioning, recovering from sepsis Does patient have active BEDREST order?: No Is patient medically & hemodynamically stable?: Yes 07/07/18 23:24 Consult to Cardiology [CONS] Routine Comment: Consulting Provider: Cardiology [place] Reason for Consult: new onset afib Call Completed: No 07/10/18 08:17 Consult to Gastroenterology [CONS] Routine Consulting Provider: [facility] [place] Reason for Consult: transaminitis Call Completed: Yes 07/11/18 09:21 Consult to Infectious Diseases [CONS] Routine Consulting Provider: [facility]ious [facility] [place] Reason for Consult: group b strep bactermia 2/2 cellulitis; abx selection and duration recs please Call Completed: No 07/15/18 14:34 Consult to Social Service(Oncology) [CONS] Routine Comment: Consulting Provider: Jose D Springer Reason for Consult: D/C planning for tomorrow Call Completed: No - Constitutional Vitals: Temp Pulse Resp BP Pulse Ox 97.9 F 94 18 102/64 95 07/16/18 08:00 07/16/18 08:00 07/16/18 09:10 07/16/18 11:02 07/16/18 09:10 General appearance: Present: cooperative, mild distress, A&O X 3, pleasant, answers questions appropriately Exam: General: Alert and oriented 3. No acute distress. Skin: Chronic skin changes in the lower extremities bilaterally Cardiovascular: Irregularly irregular, normal S1 & S2, no rubs, murmurs or gallops. JVD unable to assess due to short neck. Lungs: Clear breath sounds bilaterally, no wheezes or crackles. Abdomen: Obese, Soft, non-tender, no rigidity. Extremities: 2+ edema in the lower extremities, right lower extremity with erythematous changes, no warm, or tenderness. Right lower extremity slighly asymmetrically than the left Neurological:Normal cognition and motor skills. Rest of the physical exam is non contributory - Patient Status Disposition: Home Health Service Condition: Good Functional capacity at discharge: independent ambulation Overall status at discharge: patient is progressing back to baseline - Discharge Instructions Instructions: Cephalexin (By mouth), Rivaroxaban (By mouth), Heart Failure (DC) , Atrial Fibrillation (DC), Peripheral Vascular Disorders (DC) Follow Up With: [place],PCP [Primary Care Provider] - 07/23/18 10:30 am ([facility] [phone]) Jeff Wheatley MD [Partnered Physician] - (SENT WEB REQUEST ON 07-10-18 @ [id number] Office will call patient at home.) - Diet and Activity Activity: as per physical therapy Diet: diabetic diet - VTE Documentation of Mechanical Device: Graduated compression elastic hosiery
--- NOTE | 2018-07-16 11:26 | Physician Discharge Referral ---
Home Health/Hosp Referral Info Transfer to: Home Health - Diagnosis (1) Bacteremia due to group B Streptococcus Priority: Primary Status: Resolved (2) Chronic systolic CHF (congestive heart failure) Priority: Secondary Status: Chronic (3) Atrial fibrillation Priority: Secondary Status: Chronic (4) COPD (chronic obstructive pulmonary disease) Priority: Secondary Status: Chronic (5) Type 2 diabetes mellitus Priority: Secondary Status: Chronic (6) Transaminitis Priority: Secondary Status: Resolved (7) Chronic hypoxemic respiratory failure Priority: Secondary Status: Chronic (8) Venous stasis of both lower extremities Priority: Secondary Status: Chronic (9) Cellulitis Priority: Secondary Status: Chronic - Respiratory Orders None Smoking Cessation: Smoking cessation has been advised. For more information, call the [employer] Tobacco Quit Line at 7-562-CJOJNOW. - Diet/Nutrition Diet/Nutrition Orders: Regular - Activity Activity Orders: Ambulate - Services Needed Following services are medically necessary services: Physical Therapy - Transfer Medications Prescriptions: Cephalexin [Keflex] 500 mg PO BID 4 Days #10 capsule Furosemide [Lasix] 80 mg PO DAILY 30 Days #30 tablet Rivaroxaban [Xarelto] 20 mg PO DAILY 30 Days #30 tablet Home Medications: Aspirin [Lo-Dose Aspirin EC] 81 mg PO DAILY 07/05/18 [History] Atorvastatin Calcium [Lipitor] 80 mg PO HS 07/05/18 [History] Gabapentin [Neurontin] 600 mg PO TID 07/05/18 [History] Lisinopril [Zestril] 10 mg PO DAILY 07/05/18 [History] Metformin HCl [Fortamet] 1,000 mg PO BID 07/05/18 [History] Isosorbide MONOnitrate (24 HR) [Imdur] 30 mg PO DAILY 07/06/18 [History] Metoprolol Succinate [Toprol Xl] 25 mg PO DAILY 07/06/18 [History] Rivaroxaban [Xarelto] 20 mg PO DAILY 30 Days #30 tablet 07/08/18 [Rx] Cephalexin [Keflex] 500 mg PO BID 4 Days #10 capsule 07/16/18 [Rx] Digoxin [Lanoxin] 0.125 mg PO DAILY tablet 07/16/18 [Rx] Furosemide [Lasix] 80 mg PO DAILY 30 Days #30 tablet 07/16/18 [Rx] Allergies/Adverse Reactions: 3 Allergy/AdvReac Type Severity Reaction Status Date / Time No Known Allergies Allergy Verified 07/05/18 13:53 Certification: Further, I certify that my clinical findings support that this patient is homebound (i.e. absences from home require considerable and taxing effort and are for medical reasons or islam services or infrequently or short duration when for other reasons) because: Homebound Reason: Patient requires assistance of a person or device to safely leave home Attestation: My signature below is to certify that this patient is under my care and that I, or nurse practitioner, or a physician's lab assistant working with me, has a face-to -face encounter with this patient.
== END 2018-07-16 11:47 | disposition home health service (06) | DRG 871 ==
LOC: 2NNU → SUATTDRO 21:40 → 2NNU 07-14 12:55
PROVIDERS: ADMIT Internal Medicine; ATTEND Internal Medicine